=== PATIENT | female | born 1950 | race Caucasian/White ===

== ENCOUNTER 2016-09-26 16:38 | Emergency (ER) | payer MEDICAID ==
--- NOTE | 2016-09-26 16:57 | Emergency Department Record ---
History of Present Illness - General Chief complaint: ENT Stated complaint: EAR PAIN AND SORE THROAT Time Seen by Provider: 09/26/16 16:51 Source: Patient, RN notes reviewed Mode of Arrival: Ambulatory - History of Present Illness Initial comments: left ear pain, for 0ne day , also has congestion and cough for three days MD complaint: Ear pain Onset/Timin -: Days(s) Location: L ear, Throat Severity: Moderate Severity scale (1-10): 10 Quality: Sharp, Stabbing Consistency: Constant Improves with: None Worsens with: Eating, Swallowing, Other Associated Symptoms: Cough, Pain with swallowing, Sore throat, Other - Related Data Previous Rx's Medication Instructions Recorded Amoxicillin [Amoxil] 500 mg PO TID #30 tab 09/26/16 Hydrocodone/Acetaminophen [Widen 1 tab PO Q6H PRN #14 tab 09/26/16 5mg/325mg] Allergies Allergy/AdvReac Type Severity Reaction Status Date / Time IV contrast Allergy Severe ANAPHYLAXIS Uncoded 09/26/16 16:44 Travel Screening - Travel/Exposure Within Last 30 Days Have you traveled within the last 30 days?: No - Travel/Exposure Within Last Year Have you traveled outside the [place] in the last year?: No - Additonal Travel Details Have you been exposed to anyone with a communicable illness?: No - Travel Symptoms Symptom Screening: None Review of Systems Reviewed: No additional complaints except as noted below Constitutional: Reports: As per HPI. Denies: Chills, Fever, Malaise, Night sweats, Weakness, Weight change Eyes: Reports: As per HPI. Denies: Eye discharge, Eye pain, Photophobia, Vision change ENT: Reports: As per HPI, Ear pain, Throat pain. Denies: Congestion, Dental pain, Epistaxis, Hearing loss Respiratory: Reports: As per HPI, Cough. Denies: Dyspnea, Hemoptysis, Stridor, Wheezes Cardiovascular: Reports: As per HPI. Denies: Arrhythmia, Chest pain, Dyspnea on exertion, Edema, Murmurs, Orthopnea, Palpitations, Paroxysmal nocturnal dyspnea, Rheumatic Fever, Syncope Endocrine: Reports: As per HPI. Denies: Fatigue, Heat or cold intolerance, Polydipsia, Polyuria Gastrointestinal: Reports: As per HPI. Denies: Abdominal pain, Constipation, Diarrhea, Hematemesis, Hematochezia, Melena, Nausea, Vomiting Genitourinary: Reports: As per HPI. Denies: Abnormal menses, Discharge, Dyspareunia, Dysuria, Frequency, Hematuria, Incontinence, Retention, Urgency Musculoskeletal: Reports: As per HPI. Denies: Arthralgia, Back pain, Gout, Joint swelling, Myalgia, Neck pain Skin: Reports: As per HPI. Denies: Bruising, Change in color, Change in hair/ nails, Lesions, Pruritus, Rash Neurological: Reports: As per HPI. Denies: Abnormal gait, Confusion, Headache, Numbness, Paresthesias, Seizure, Tingling, Tremors, Vertigo, Weakness Psychiatric: Reports: As per HPI. Denies: Anxiety, Auditory hallucinations, Depression, Homicidal thoughts, Suicidal thoughts, Visual hallucinations Hematological/Lymphatic: Reports: As per HPI. Denies: Anemia, Blood Clots, Easy bleeding, Easy bruising, Swollen glands Past Medical History - SOCIAL HISTORY Smoking Status: Light tobacco smoker (<10/day) Alcohol Use: Rare Drug Use: None - RESPIRATORY Hx Respiratory Disorders: Yes Hx Bronchitis: Yes - CARDIOVASCULAR Hx Cardio Disorders: No - NEURO Hx Neuro Disorders: No - GI Hx GI Disorders: Yes Hx Reflux: Yes - Hx Genitourinary Disorders: No - ENDOCRINE Hx Endocrine Disorders: No Hx Diabetes: No Hx Thyroid Disease: No - MUSCULOSKELETAL Hx Musculoskeletal Disorders: Yes Hx Arthritis: Yes - PSYCH Hx Psych Problems: No - HEMATOLOGY/ONCOLOGY Hx Hematology/Oncology Disorders: No Family Medical History Any Significant Family History?: Yes Hx Diabetes: Mother Hx Heart Disease: Father, Grandparents Physical Exam - General General Appearance: Alert, Oriented x3, Cooperative, No acute distress - Head Head exam: Normal inspection - Eye Eye exam: Normal appearance, PERRL Pupils: Normal accommodation - ENT ENT exam: Mucous membranes moist, Normal external ear exam, Other (left TM is red) Ear exam: Normal external inspection. negative: External canal tenderness Nasal Exam: Normal inspection. negative: Discharge, Sinus tenderness Mouth exam: Normal external inspection, Tongue normal Teeth exam: Normal inspection. negative: Dental caries Throat exam: Normal inspection. negative: Tonsillar erythema, Tonsillar exudate - Neck Neck exam: Normal inspection, Full ROM. negative: Tenderness - Respiratory Respiratory exam: Normal lung sounds bilaterally, Other (couarse cough). negative: Respiratory distress - Cardiovascular Cardiovascular Exam: Regular rate, Normal rhythm, Normal heart sounds - GI/Abdominal GI/Abdominal exam: Soft, Normal bowel sounds. negative: Tenderness - Rectal Rectal exam: Deferred - exam: Deferred - Extremities Extremities exam: Normal inspection, Full ROM, Normal capillary refill. negative: Tenderness - Back Back exam: Reports: Normal inspection, Full ROM. Denies: Muscle spasm, Rash noted, Tenderness - Neurological Neurological exam: Alert, Normal gait, Oriented X3, Reflexes normal - Psychiatric Psychiatric exam: Normal affect, Normal mood - Skin Skin exam: Dry, Intact, Normal color, Warm Course Vital Signs 09/26/16 16:44 Temperature 97.9 F Pulse Rate 89 Respiratory 20 Rate Blood Pressure 184/80 Pulse Ox 99 patient has a nebulizer and albuterol at home and I told her to use it four times a day Disposition Clinical Impression: Bronchitis Otitis media Qualifiers: Otitis media type: suppurative Laterality: left Chronicity: acute Recurrence: not specified as recurrent Spontaneous tympanic membrane rupture: without spontaneous rupture Qualified Code(s): H66.002 - Acute suppurative otitis media without spontaneous rupture of ear drum, left ear Disposition: Home, Self-Care Condition: (1) Good Instructions: Otitis Media (ED), Acute Bronchitis (ED) Prescriptions: Amoxicillin [Amoxil] 500 mg PO TID #30 tab Hydrocodone/Acetaminophen [Widen 5mg/325mg] 1 tab PO Q6H PRN #14 tab PRN Reason: Pain - General Forms: Patient Portal Access Time of Disposition: 17:02
== END 2016-09-26 17:12 | disposition home or self-care (01) ==
LOC: ER 16:38
DX: H66.002 Acute suppurative otitis media without spontaneous rupture of ear drum, left ear (principal); J20.9 Acute bronchitis, unspecified
CPT/HCPCS: 99282

== ENCOUNTER 2016-09-30 14:44 | Emergency (ER) | payer MEDICAID ==
--- NOTE | 2016-09-30 16:57 | Emergency Department Record ---
History of Present Illness - General Chief complaint: ENT Stated complaint: ERICKA/ EAR PAIN Time Seen by Provider: 09/30/16 16:50 Source: Patient Mode of Arrival: Ambulatory Limitations: No limitations - History of Present Illness Initial comments: 66 yo female returns to ED for evaluation of left ear pain and cough symptoms for the past several days. Patient was seen 4 days ago, diagnosed with bronchitis and started on [place] and ampicillin for her symptoms. Patient reports that her symptoms ahve not improved much. Patient denies fevers, chills , nausea, or vomiting symptoms. Patient denies history of COPD or asthma, but reports that she is susceptible to PNA and Bronchitis frequently. MD complaint: Ear pain, Other Onset/Timin -: Week(s) Location: L ear Severity: Moderate Quality: Aching Consistency: Constant Improves with: None Worsens with: None Context- Ear: Recent illness Associated Symptoms: Cough - Related Data Previous Rx's Medication Instructions Recorded Amoxicillin [Amoxil] 500 mg PO TID #30 tab 09/26/16 Hydrocodone/Acetaminophen [[place] 1 tab PO Q6H PRN #14 tab 09/26/16 5mg/325mg] Albuterol Sulfate [Proair Hfa] 1 - 2 puff IH .EVERY 4-6 HOURS PRN 09/30/16 #1 inhaler Amoxicillin/Potassium Clav 1 tab PO BID #19 tab 09/30/16 [Augmentin 875-125 Tablet] Ketorolac Tromethamine [Acular] 3 ml OPTH Q8H PRN #1 btl 09/30/16 Prednisone [Prednisone 20Mg] 20 mg PO TID #12 tab 09/30/16 Allergies Allergy/AdvReac Type Severity Reaction Status Date / Time IV contrast Allergy Severe ANAPHYLAXIS Uncoded 09/26/16 16:44 Review of Systems Constitutional: Denies: Chills, Fever, Malaise, Night sweats Eyes: Denies: Eye discharge, Eye pain ENT: Reports: Ear pain. Denies: Congestion, Epistaxis Respiratory: Reports: Cough. Denies: Dyspnea, Hemoptysis Cardiovascular: Denies: Chest pain, Dyspnea on exertion Endocrine: Denies: Fatigue, Heat or cold intolerance Gastrointestinal: Denies: Abdominal pain, Nausea, Vomiting Genitourinary: Denies: Dysuria, Frequency, Hematuria, Incontinence Musculoskeletal: Denies: Arthralgia, Back pain, Gout, Joint swelling Skin: Denies: Bruising, Change in color Neurological: Denies: Abnormal gait, Confusion, Headache, Tingling Psychiatric: Denies: Anxiety Hematological/Lymphatic: Denies: Anemia, Blood Clots Past Medical History - SOCIAL HISTORY Smoking Status: Light tobacco smoker (<10/day) Drug Use: None - RESPIRATORY Hx Respiratory Disorders: Yes Hx Bronchitis: Yes - CARDIOVASCULAR Hx Cardio Disorders: No - NEURO Hx Neuro Disorders: No - GI Hx GI Disorders: Yes Hx Reflux: Yes - Hx Genitourinary Disorders: No - ENDOCRINE Hx Endocrine Disorders: No Hx Diabetes: No Hx Thyroid Disease: No - MUSCULOSKELETAL Hx Musculoskeletal Disorders: Yes Hx Arthritis: Yes - PSYCH Hx Psych Problems: No - HEMATOLOGY/ONCOLOGY Hx Hematology/Oncology Disorders: No Family Medical History Hx Diabetes: Mother Hx Heart Disease: Father, Grandparents Physical Exam - General General Appearance: Alert, Oriented x3, Cooperative, No acute distress Limitations: No limitations - Head Head exam: Atraumatic, Normocephalic, Normal inspection Head exam detail: negative: Abrasion, Contusion, Mcgee's sign, General tenderness, Hematoma, Laceration - Eye Eye exam: Normal appearance. negative: Conjunctival injection, Periorbital swelling, Periorbital tenderness, Scleral icterus - ENT Ear exam: negative: Auricular hematoma, Auricular trauma Nasal Exam: negative: Active bleeding, Discharge, Dried blood, Foreign body, Sinus tenderness Mouth exam: negative: Drooling, Laceration, Muffled voice, Tongue elevation - Neck Neck exam: Normal inspection. negative: Meningismus, Tenderness - Respiratory Respiratory exam: Decreased breath sounds. negative: Respiratory distress, Rhonchi, Stridor, Wheezes - Cardiovascular Cardiovascular Exam: Regular rate, Normal rhythm, Normal heart sounds - GI/Abdominal GI/Abdominal exam: Soft. negative: Rebound, Rigid, Tenderness - Rectal Rectal exam: Deferred - exam: Deferred - Extremities Extremities exam: Normal inspection. negative: Calf tenderness, Pedal edema, Tenderness - Back Back exam: Reports: Normal inspection. Denies: CVA tenderness (R), CVA tenderness (L) - Neurological Neurological exam: Alert, Normal gait, Oriented X3 - Psychiatric Psychiatric exam: Normal affect, Normal mood - Skin Skin exam: Normal color. negative: Abrasion Type of lesion: negative: abrasion Course - Reevaluation(s) Reevaluation #1: 09/30/16 17:46 CXR: Linear atelectasis or scarring right lateral lung base c/w atelectasis, less likely infiltrate. Patient reassessed, reports improvement in her cough symptoms. Patient was updated on all results and appears stable for discharge at this time on Augmentin, Prednisone, and albuterol for her symptoms. Reevaluation #2: 09/30/16 17:52 Case was discussed with the pharmacist at [facility], reports that Acular may be used for otic pain as well. Will prescribe for the patient's ear pain symptoms. Disposition Disposition: Discharge Clinical Impression: Bronchitis Otitis media Qualifiers: Otitis media type: unspecified Laterality: left Chronicity: unspecified Qualified Code(s): H66.92 - Otitis media, unspecified, left ear Disposition: Home, Self-Care Condition: (2) Stable Instructions: Otitis Media (ED) Additional Instructions: Return to ED if your symptoms worsen or if you have any concerns. Stop amoxicillin Acular, Augmentin, Prednisone, and Albuterol as directed. Follow-up with your family doctor in 3-5 days as directed. Prescriptions: Ketorolac Tromethamine [Acular] 3 ml OPTH Q8H PRN #1 btl PRN Reason: Pain - Moderate (5-7) Amoxicillin/Potassium Clav [Augmentin 875-125 Tablet] 1 tab PO BID #19 tab Prednisone [Prednisone 20Mg] 20 mg PO TID #12 tab Albuterol Sulfate [Proair Hfa] 1 - 2 puff IH .EVERY 4-6 HOURS PRN #1 inhaler PRN Reason: Difficulty In Breathing Forms: Patient Portal Access Time of Disposition: 17:52
[2016-09-30] MEDS: IPRATROPIUM/ALBUTEROL (0.5MG/3MG) NEB INH ONE (16:59)
[2016-09-30] MEDS: PREDNISONE 20 MG TAB PO ONE (17:09)
[2016-09-30] MEDS: AMOXICILLIN/POTASSIUM CLAV 875MG/125MG TABLET PO ONE (17:58)
--- NOTE | 2016-10-04 14:56 | RADIOLOGY REPORT ---
EXAM: CHEST, TWO VIEWS HISTORY: DIFFICULTY IN BREATHING AND CONGESTIN. DIAGNOSED WITH BRONCHITIS FOUR DAYS AGO. TECHNIQUE: Upright PA and lateral views of the chest were obtained. Comparison: Two view chest radiographic examination dated 05/27/15. FINDINGS: The heart is not enlarged and the pulmonary vasculature is nondilated. Patchy predominantly linear opacities are noted within the right lung base consistent with atelectasis, scarring, or less likely infiltrate. A calcified granuloma is again noted in the mid to upper left lung measuring 4 mm , unchanged. The lungs and pleural spaces are otherwise clear. Anterior plate and four screws are again noted affixing the lower cervical spine. There are degenerative changes of the visualized spine. IMPRESSION: 1. MINOR PATCHY PREDOMINANTLY LINEAR OPACITIES WITHIN THE LATERAL RIGHT LUNG BASE CONSISTENT WITH ATELECTASIS, SCARRING, OR LESS LIKELY INFILTRATE. 2. CALCIFIED GRANULOMA REDEMONSTRATED IN THE MID TO UPPER LEFT LUNG. OTHERWISE NO CHANGE. JOB NUMBER: [id number] MTDD
== END 2016-09-30 18:05 | disposition home or self-care (01) ==
LOC: ER 14:44
DX: J20.9 Acute bronchitis, unspecified (principal); H66.92 Otitis media, unspecified, left ear; Z72.0 Tobacco use
CPT/HCPCS: 99283 ×2; 71020; 94640; J7512

== ENCOUNTER 2016-10-11 10:28 | Emergency (ER) | payer MEDICAID ==
--- NOTE | 2016-10-11 10:57 | Emergency Department Record ---
History of Present Illness - General Chief Complaint: Cough Stated Complaint: SHORT OF BREATH/COUGHING/ACHES Time Seen by Provider: 10/11/16 10:42 Source: Patient Mode of Arrival: Ambulatory Limitations: No limitations - History of Present Illness Initial Comments: The patient is here due to a 3-4 week hx of cough, congestion, sputum production , and nasal drainage. She denies any fever, chills, HERRON or ST. She has been to the ER twice in the last 2 weeks and was first placed on Amox then Augmentin and Prednisone with Albuterol. Now she is no better so she has returned. She has been off the Prednisone for 5 days. MD Complaint: Cough, Nasal congestion, Rhinorrhea Onset/Timin -: Week(s) Consistency: Intermittent, Getting worse - Related Data Previous Rx's Medication Instructions Recorded Albuterol Sulfate [Proair Hfa] 1 - 2 puff IH .EVERY 4-6 HOURS PRN 09/30/16 #1 inhaler Doxycycline Monohydrate [Mondoxyne 100 mg PO BID #20 capsule 10/11/16 Nl] Prednisone [Prednisone 20Mg] 40 mg PO DAILY #10 tab 10/11/16 Allergies Allergy/AdvReac Type Severity Reaction Status Date / Time IV contrast Allergy Severe ANAPHYLAXIS Uncoded 10/11/16 10:32 Travel Screening - Travel/Exposure Within Last 30 Days Have you traveled within the last 30 days?: No - Travel/Exposure Within Last Year Have you traveled outside the [place] in the last year?: No - Additonal Travel Details Have you been exposed to anyone with a communicable illness?: No - Travel Symptoms Symptom Screening: None Review of Systems Constitutional: Reports: Malaise. Denies: Chills, Fever Eyes: Denies: Eye discharge, Eye pain ENT: Reports: Congestion Respiratory: Reports: Cough. Denies: Dyspnea Cardiovascular: Denies: Arrhythmia, Chest pain Past Medical History - SOCIAL HISTORY Smoking Status: Light tobacco smoker (<10/day) Alcohol Use: Occassional Drug Use: None - RESPIRATORY Hx Respiratory Disorders: Yes Hx Bronchitis: Yes - CARDIOVASCULAR Hx Cardio Disorders: No - NEURO Hx Neuro Disorders: No - GI Hx GI Disorders: Yes Hx Reflux: Yes - Hx Genitourinary Disorders: No - ENDOCRINE Hx Endocrine Disorders: No Hx Diabetes: No Hx Thyroid Disease: No - MUSCULOSKELETAL Hx Musculoskeletal Disorders: Yes Hx Arthritis: Yes - PSYCH Hx Psych Problems: No - HEMATOLOGY/ONCOLOGY Hx Hematology/Oncology Disorders: No Family Medical History Any Significant Family History?: Yes Hx Diabetes: Mother Hx Heart Disease: Father, Grandparents Physical Exam - General General Appearance: Alert, Oriented x3, Cooperative, No acute distress - Head Head exam: Atraumatic, Normocephalic, Normal inspection - Eye Eye exam: Normal appearance, PERRL - ENT ENT exam: Normal exam, Mucous membranes moist, Normal external ear exam, Normal orophraynx, TM's normal bilaterally Throat exam: Tonsillar erythema. negative: Normal inspection, Tonsillomegaly, Tonsillar exudate - Neck Neck exam: Normal inspection, Full ROM. negative: Lymphadenopathy, Meningismus , Tenderness - Respiratory Respiratory exam: Normal lung sounds bilaterally. negative: Accessory muscle use, Decreased breath sounds, Respiratory distress, Stridor, Wheezes - Cardiovascular Cardiovascular Exam: Regular rate, Normal rhythm, Normal heart sounds - Extremities Extremities exam: Normal inspection, Full ROM, Normal capillary refill. negative: Tenderness Course Vital Signs 10/11/16 10:35 Temperature 98.5 F Pulse Rate 94 H Respiratory 20 Rate Blood Pressure 124/95 Pulse Ox 99 - Reevaluation(s) Reevaluation #1: Due to the patient having clear lungs and a normal temp and biox I do not feel she needs another xray. We will prescribe her Doxycycline and another short course of Prednisone with F/U next week with her PCP. 10/11/16 10:54 Disposition Disposition: Discharge Clinical Impression: Bronchitis Disposition: Home, Self-Care Condition: (1) Good Instructions: Cold Symptoms (ED) Additional Instructions: Please take the Doxycyline and Prednisone as directed. Please see your PCP next week if not better and return to the ER if worse. Prescriptions: Doxycycline Monohydrate [Mondoxyne Nl] 100 mg PO BID #20 capsule Prednisone [Prednisone 20Mg] 40 mg PO DAILY #10 tab Forms: Patient Portal Access Time of Disposition: 10:57
== END 2016-10-11 11:01 | disposition home or self-care (01) ==
LOC: ER 10:28
DX: J20.9 Acute bronchitis, unspecified (principal)
CPT/HCPCS: 99282

== ENCOUNTER 2016-10-22 04:13 | Emergency (ER) | payer MEDICAID ==
--- NOTE | 2016-10-22 04:23 | Emergency Department Record ---
History of Present Illness - General Chief complaint: Facial Swelling Stated complaint: FACIAL SWELLING Time Seen by Provider: 10/22/16 04:22 Source: Patient Mode of Arrival: Ambulatory Limitations: No limitations - History of Present Illness Initial Comments: The patient is here due to a 2 day hx of L facial swelling and pain. The onset was 2 days ago with mild pain above her L # 11 tooth. The pain and swelling worsened today. She denies any ST, ERICKA, difficulty swallowing or fever. MD Complaint: Facial swelling Onset/Timin -: Days(s) Exposure: Unknown Symptoms: Facial swelling - Related Data Previous Rx's Medication Instructions Recorded Albuterol Sulfate [Proair Hfa] 1 - 2 puff IH .EVERY 4-6 HOURS PRN 09/30/16 #1 inhaler Clindamycin HCl [Cleocin HCl] 300 mg PO QID #28 capsule 10/22/16 Allergies Allergy/AdvReac Type Severity Reaction Status Date / Time IV contrast Allergy Severe ANAPHYLAXIS Uncoded 10/11/16 10:32 Travel Screening - Travel/Exposure Within Last 30 Days Have you traveled within the last 30 days?: No - Travel Symptoms Symptom Screening: None Review of Systems Constitutional: Denies: Chills, Fever Eyes: Denies: Eye discharge ENT: Denies: Congestion Respiratory: Denies: Cough, Dyspnea Past Medical History - SOCIAL HISTORY Smoking Status: Light tobacco smoker (<10/day) - RESPIRATORY Hx Respiratory Disorders: Yes Hx Bronchitis: Yes - CARDIOVASCULAR Hx Cardio Disorders: No - NEURO Hx Neuro Disorders: No - GI Hx GI Disorders: Yes Hx Reflux: Yes - Hx Genitourinary Disorders: No - ENDOCRINE Hx Endocrine Disorders: No Hx Diabetes: No Hx Thyroid Disease: No - MUSCULOSKELETAL Hx Musculoskeletal Disorders: Yes Hx Arthritis: Yes - PSYCH Hx Psych Problems: No - HEMATOLOGY/ONCOLOGY Hx Hematology/Oncology Disorders: No Family Medical History Any Significant Family History?: Yes Hx Diabetes: Mother Hx Heart Disease: Father, Grandparents Physical Exam - General General Appearance: Alert, Oriented x3, Cooperative, No acute distress - Head Head exam: Atraumatic, Normocephalic, Normal inspection - Eye Eye exam: Normal appearance, PERRL - ENT ENT exam: Other (There is moderate L facial swelling and tenderness.). negative : Normal exam Teeth exam: Dental caries, Dental tenderness # (11. The gum line above the # 11 tooth is very tender.). negative: Normal inspection Throat exam: Normal inspection. negative: Tonsillar erythema, Tonsillar exudate - Neck Neck exam: Normal inspection, Full ROM. negative: Tenderness - Respiratory Respiratory exam: Normal lung sounds bilaterally. negative: Respiratory distress - Cardiovascular Cardiovascular Exam: Regular rate, Normal rhythm, Normal heart sounds Course Vital Signs 10/22/16 04:17 Temperature 98.5 F Pulse Rate 115 H Respiratory 18 Rate Blood Pressure 120/90 Pulse Ox 98 - Reevaluation(s) Reevaluation #1: I did discuss the options for the patient. I explained to her that we normally will keep the patient in the hospital for IV Abx. The patient states she cannot stay due to needing to go to [facility] this AM because her is having a cardiac procedure. I then discussed the need to return to the ER later today for repeat Abx's and she did say she could do that. 10/22/16 04:34 10/22/16 05:08 Disposition Disposition: Discharge Clinical Impression: Dental Abscess Disposition: Home, Self-Care Condition: (1) Good Instructions: Dental Abscess (ED) Additional Instructions: Please use ice on the L facial area and take Tylenol for pain. Please return to the ER in 8 hours for repeat IV Abx's. Return to the ER sooner for any increased pain, fever, or trouble swallowing. Prescriptions: Clindamycin HCl [Cleocin HCl] 300 mg PO QID #28 capsule Forms: Patient Portal Access Time of Disposition: 05:10
[2016-10-22] MEDS ORDERED: CLINDAMYCIN 600MG/50ML PREMIX 600 MG in DEXTROSE 1 BAG IV ONE (04:28)
== END 2016-10-22 05:25 | disposition home or self-care (01) ==
LOC: ER 04:13
DX: K04.7 Periapical abscess without sinus (principal)
CPT/HCPCS: 96365; 96374; 99282; 99283; 99284

== ENCOUNTER 2016-10-22 12:28 | Emergency (ER) | payer MEDICAID ==
[2016-10-22] MEDS ORDERED: CLINDAMYCIN 600MG/50ML PREMIX 600 MG in DEXTROSE 1 BAG IV ONE (12:47)
--- NOTE | 2016-10-22 12:54 | Emergency Department Record ---
History of Present Illness - General Chief complaint: Abscess Stated complaint: RECHECK FACIAL SWELLING Time Seen by Provider: 10/22/16 12:38 Source: Patient, Family Mode of Arrival: Ambulatory Limitations: No limitations - History of Present Illness Initial comments: 66 yo female presents with 2 days of left upper gum pain with swelling. She was seen in the ED earlier in the morning. She was asked to return for additionally antibiotics. She has not started the prescription of Clindamycin that was prescribed. She denies and throat or neck pain. No difficulty swallowing. She has not called a dentist for this issue yet. She has not seen a dentist in "many" years. She reports the site is stable and not worse since initial visit. Her is critically ill and she has been very busy dealing with that as well. MD complaint: Other (Dental infection) -: Days(s) Hx Tetanus Toxoid Vaccination: Yes Year of Tetanus Vaccination: unsure Location: Face Severity: Moderate Severity scale (1-10): 7 Quality: Aching Consistency: Constant Improves with: None Worsens with: None Context: None Associated symptoms: Denies other symptoms Treatments Prior to Arrival: None - Related Data Previous Rx's Medication Instructions Recorded Albuterol Sulfate [Proair Hfa] 1 - 2 puff IH .EVERY 4-6 HOURS PRN 09/30/16 #1 inhaler Clindamycin HCl [Cleocin HCl] 300 mg PO QID #28 capsule 10/22/16 Allergies Allergy/AdvReac Type Severity Reaction Status Date / Time IV contrast Allergy Severe ANAPHYLAXIS Uncoded 10/22/16 12:39 Travel Screening - Travel/Exposure Within Last 30 Days Have you traveled within the last 30 days?: No - Travel/Exposure Within Last Year Have you traveled outside the [place] in the last year?: No - Additonal Travel Details Have you been exposed to anyone with a communicable illness?: No - Travel Symptoms Symptom Screening: None Review of Systems Constitutional: Denies: Chills, Fever, Malaise, Night sweats Eyes: Denies: Eye discharge, Eye pain, Photophobia, Vision change ENT: Reports: As per HPI, Dental pain. Denies: Throat pain Respiratory: Denies: Cough, Dyspnea Cardiovascular: Denies: Chest pain, Palpitations, Syncope Endocrine: Denies: Fatigue Gastrointestinal: Denies: Abdominal pain, Diarrhea, Nausea, Vomiting Genitourinary: Denies: Dysuria Musculoskeletal: Denies: Arthralgia, Back pain, Myalgia Skin: Denies: Bruising, Change in color, Rash Neurological: Denies: Headache Psychiatric: Denies: Anxiety Hematological/Lymphatic: Denies: Blood Clots, Easy bleeding, Easy bruising, Swollen glands Past Medical History - SOCIAL HISTORY Smoking Status: Light tobacco smoker (<10/day) - RESPIRATORY Hx Respiratory Disorders: Yes Hx Bronchitis: Yes - CARDIOVASCULAR Hx Cardio Disorders: No - NEURO Hx Neuro Disorders: No - GI Hx GI Disorders: Yes Hx Reflux: Yes - Hx Genitourinary Disorders: No - ENDOCRINE Hx Endocrine Disorders: No Hx Diabetes: No Hx Thyroid Disease: No - MUSCULOSKELETAL Hx Musculoskeletal Disorders: Yes Hx Arthritis: Yes - PSYCH Hx Psych Problems: No - HEMATOLOGY/ONCOLOGY Hx Hematology/Oncology Disorders: No Family Medical History Any Significant Family History?: Yes Hx Diabetes: Mother Hx Heart Disease: Father, Grandparents Physical Exam - General General Appearance: Alert, Oriented x3, Cooperative, No acute distress Limitations: No limitations - Head Head exam: Atraumatic, Normocephalic Image of Face/Head: 1 - local swelling and mild erythema with focal tenderness. Intra oral exam: no visible bulge or visible abscess. 2 - area of tenderness - Eye Eye exam: Normal appearance, Periorbital swelling (slight lower lid swelling) - ENT ENT exam: Mucous membranes moist, Normal orophraynx Nasal Exam: Normal inspection Mouth exam: Normal external inspection, Tongue normal. negative: Drooling, Muffled voice, Tongue elevation, Trismus Teeth exam: Dental tenderness # (11). negative: Dental caries, Fractured tooth #, Gingival enlargement Throat exam: Normal inspection. negative: Tonsillar erythema, Tonsillar exudate - Neck Neck exam: Normal inspection, Full ROM. negative: Lymphadenopathy, Tenderness, Thyromegaly - Respiratory Respiratory exam: Normal lung sounds bilaterally. negative: Respiratory distress - Cardiovascular Cardiovascular Exam: Regular rate, Normal rhythm, Normal heart sounds - Rectal Rectal exam: Deferred - exam: Deferred - Neurological Neurological exam: Alert, CN II-XII intact, Oriented X3. negative: Motor sensory deficit - Psychiatric Psychiatric exam: Normal affect, Normal mood - Skin Skin exam: Erythema Course Vital Signs 10/22/16 12:31 Temperature 98.2 F Pulse Rate 90 Respiratory 20 Rate Blood Pressure 135/72 Pulse Ox 97 - Reevaluation(s) Reevaluation #1: The EMR was reviewed The patient received Clindamycin on the prior visit (she has not started her oral prescription yet). IV clindamycin ordered. 10/22/16 12:54 Reevaluation #2: The patient requests again DC with return for IV antibiotics if needed. She did fill her Clindamycin and can start that when the IV is finished. 10/22/16 13:05 Disposition Disposition: Discharge Clinical Impression: Abscess, dental Disposition: Home, Self-Care Condition: (1) Good Instructions: Abscess (ED) Additional Instructions: Return at 8:30pm for an additional dose of antibiotics Call the numbers provided to you for a dentist Return sooner if worse immediately Forms: Patient Portal Access Time of Disposition: 13:07
== END 2016-10-22 13:36 | disposition home or self-care (01) ==
LOC: ER 12:28
DX: K04.7 Periapical abscess without sinus (principal)

== ENCOUNTER 2016-10-22 19:44 | Emergency (ER) | payer MEDICAID ==
[2016-10-22] MEDS ORDERED: CLINDAMYCIN 600MG/50ML PREMIX 600 MG in DEXTROSE 1 BAG IV ONE (19:54)
--- NOTE | 2016-10-22 20:00 | Emergency Department Record ---
History of Present Illness - General Chief Complaint: Recheck - Other Stated Complaint: RECHECK FACIAL SWELLING Time Seen by Provider: 10/22/16 19:54 Source: Patient Mode of arrival: Ambulatory Limitations: No limitations - History of Present Illness Initial Comments: 66 yo female presents to ED for re-evaluation of left sided facial swelling and pain that began early this morning. Patient reports pain and redness to the area, but reports that the swelling around the eye has improved since this morning. Patient denies fevers, chills, or recent illness symptoms. MD Complaint: Needs IV antibiotics Onset/Timin -: Days(s) Initial Visit For: Abscess Returns Today for: Needs IV antibiotics Symptoms Since Prior Visit: No new symptoms, Improved Associated Symptoms: None - Related Data Previous Rx's Medication Instructions Recorded Albuterol Sulfate [Proair Hfa] 1 - 2 puff IH .EVERY 4-6 HOURS PRN 09/30/16 #1 inhaler Clindamycin HCl [Cleocin HCl] 300 mg PO QID #28 capsule 10/22/16 Allergies Allergy/AdvReac Type Severity Reaction Status Date / Time IV contrast Allergy Severe ANAPHYLAXIS Uncoded 10/22/16 12:39 Travel Screening - Travel/Exposure Within Last 30 Days Have you traveled within the last 30 days?: No Review of Systems Constitutional: Denies: Chills, Fever, Malaise, Night sweats Eyes: Denies: Eye discharge, Eye pain ENT: Denies: Congestion, Ear pain, Epistaxis Respiratory: Denies: Cough, Dyspnea Cardiovascular: Denies: Chest pain, Dyspnea on exertion Endocrine: Denies: Fatigue, Heat or cold intolerance Gastrointestinal: Denies: Abdominal pain, Nausea, Vomiting Genitourinary: Denies: Dysuria, Frequency Musculoskeletal: Denies: Arthralgia, Back pain, Gout, Joint swelling Skin: Reports: Change in color, Rash (erythema to the left face). Denies: Bruising Neurological: Denies: Abnormal gait, Confusion, Headache, Seizure Psychiatric: Denies: Anxiety Hematological/Lymphatic: Denies: Anemia, Blood Clots Past Medical History - SOCIAL HISTORY Smoking Status: Light tobacco smoker (<10/day) Alcohol Use: None Drug Use: None - RESPIRATORY Hx Respiratory Disorders: Yes Hx Bronchitis: Yes - CARDIOVASCULAR Hx Cardio Disorders: No - NEURO Hx Neuro Disorders: No - GI Hx GI Disorders: Yes Hx Reflux: Yes - Hx Genitourinary Disorders: No - ENDOCRINE Hx Endocrine Disorders: No Hx Diabetes: No Hx Thyroid Disease: No - MUSCULOSKELETAL Hx Musculoskeletal Disorders: Yes Hx Arthritis: Yes - PSYCH Hx Psych Problems: No - HEMATOLOGY/ONCOLOGY Hx Hematology/Oncology Disorders: No Family Medical History Any Significant Family History?: Yes Hx Diabetes: Mother Hx Heart Disease: Father, Grandparents Physical Exam - General General Appearance: Alert, Oriented x3, Cooperative, No acute distress Limitations: No limitations - Head Head exam: Atraumatic, Other (Left sided facial swelling and koko-orbital edema) Head exam detail: General tenderness. negative: Abrasion, Contusion, Mcgee's sign, Hematoma, Laceration - Eye Eye exam: Periorbital swelling, Periorbital tenderness. negative: Conjunctival injection, Scleral icterus - ENT Ear exam: negative: Auricular hematoma, Auricular trauma Nasal Exam: negative: Active bleeding, Discharge, Dried blood, Foreign body Mouth exam: negative: Drooling, Laceration, Muffled voice, Tongue elevation Teeth exam: Other (all teeth have been removed to the upper left) - Neck Neck exam: negative: Lymphadenopathy, Meningismus, Tenderness - Respiratory Respiratory exam: Normal lung sounds bilaterally. negative: Rales, Respiratory distress, Rhonchi, Stridor - Cardiovascular Cardiovascular Exam: Regular rate, Normal rhythm, Normal heart sounds - GI/Abdominal GI/Abdominal exam: Soft. negative: Rebound, Rigid, Tenderness - Rectal Rectal exam: Deferred - exam: Deferred - Extremities Extremities exam: Normal inspection. negative: Pedal edema, Tenderness - Back Back exam: Denies: CVA tenderness (R), CVA tenderness (L) - Neurological Neurological exam: Alert, Normal gait, Oriented X3 - Psychiatric Psychiatric exam: Normal affect, Normal mood - Skin Skin exam: Erythema, Warm Distribution of rash: Face Description of rash: Confluent, Swelling, Tenderness. negative: Fluctuant, Indurated Course Vital Signs 10/22/16 19:50 Temperature 98.3 F Pulse Rate [ 92 H Pulse Ox Probe] Respiratory 20 Rate Blood Pressure 154/79 [Left Arm] Pulse Ox 99 - Reevaluation(s) Reevaluation #1: 10/22/16 20:31 IV Clindamcyin has completed infusion, patient reports overall improvement from this morning. Patient appears stable for discharge with instructions to begin her oral Clindamycin and to return for any worsening of her symptoms. Patient agrees with plan as discussed. Disposition Disposition: Discharge Clinical Impression: Abscess, dental Instructions: Periorbital Cellulitis in Children (ED) Additional Instructions: Return to ED if your symptoms worsen or if you have any concerns. Continue oral clindamcyin as directed. Follow-up with your family doctor in 1-3 days as directed. Forms: Patient Portal Access Time of Disposition: 20:00
== END 2016-10-22 20:35 | disposition home or self-care (01) ==
LOC: ER 19:44
DX: K04.7 Periapical abscess without sinus (principal)

== ENCOUNTER 2016-11-26 07:42 | Emergency (ER) | payer MEDICAID ==
--- NOTE | 2016-11-26 07:59 | Emergency Department Record ---
History of Present Illness - General Chief Complaint: Cough Stated Complaint: COUGH Time Seen by Provider: 11/26/16 07:43 Source: Patient Mode of Arrival: Ambulatory Limitations: No limitations - History of Present Illness Initial Comments: 66 yo female presents to ED with a CC of cough symptoms for the past 2-3 days. Patient denies fevers, chills, or recent illness. Patient reports a history of COPD and bronchitis with similar symptoms. MD Complaint: Cough Onset/Timin -: Days(s) Severity: Moderate Severity scale (1-10): 7 Consistency: Constant Improves With: Nothing Worsens With: Deep breaths Associated Symptoms: Denies other symptoms Treatments Prior to Arrival: Other - Related Data Previous Rx's Medication Instructions Recorded Albuterol Sulfate [Proair Hfa] 1 - 2 puff IH .EVERY 4-6 HOURS PRN 09/30/16 #1 inhaler Prednisone [Prednisone 20Mg] 20 mg PO TID #15 tab 11/26/16 Promethazine HCl/Codeine 5 - 10 ml PO .AT BEDTIME PRN #118 11/26/16 [Phenergan W/Codeine] ml Allergies Allergy/AdvReac Type Severity Reaction Status Date / Time IV contrast Allergy Severe ANAPHYLAXIS Uncoded 10/22/16 12:39 Travel Screening - Travel/Exposure Within Last 30 Days Have you traveled within the last 30 days?: No Review of Systems Constitutional: Denies: Chills, Fever, Malaise, Night sweats Eyes: Denies: Eye discharge, Eye pain ENT: Reports: Congestion. Denies: Ear pain, Epistaxis Respiratory: Reports: Cough, Wheezes. Denies: Dyspnea Cardiovascular: Denies: Chest pain, Edema Endocrine: Denies: Fatigue, Heat or cold intolerance Gastrointestinal: Denies: Abdominal pain, Nausea, Vomiting Genitourinary: Denies: Frequency, Hematuria, Incontinence Musculoskeletal: Denies: Arthralgia, Back pain, Gout, Joint swelling Skin: Denies: Bruising, Change in color Neurological: Denies: Abnormal gait, Confusion, Headache, Tingling Psychiatric: Denies: Anxiety Hematological/Lymphatic: Denies: Anemia, Blood Clots Past Medical History - SOCIAL HISTORY Smoking Status: Light tobacco smoker (<10/day) Alcohol Use: None Drug Use: None - RESPIRATORY Hx Respiratory Disorders: Yes Hx Bronchitis: Yes - CARDIOVASCULAR Hx Cardio Disorders: No - NEURO Hx Neuro Disorders: No - GI Hx GI Disorders: Yes Hx Reflux: Yes - Hx Genitourinary Disorders: No - ENDOCRINE Hx Endocrine Disorders: No Hx Diabetes: No Hx Thyroid Disease: No - MUSCULOSKELETAL Hx Musculoskeletal Disorders: Yes Hx Arthritis: Yes - PSYCH Hx Psych Problems: No - HEMATOLOGY/ONCOLOGY Hx Hematology/Oncology Disorders: No Family Medical History Any Significant Family History?: Yes Hx Diabetes: Mother Hx Heart Disease: Father, Grandparents Physical Exam - General General Appearance: Alert, Oriented x3, Cooperative, Mild distress Limitations: No limitations - Head Head exam: Atraumatic, Normocephalic, Normal inspection Head exam detail: negative: Abrasion, Contusion, Mcgee's sign, General tenderness, Hematoma, Laceration - Eye Eye exam: Normal appearance. negative: Conjunctival injection, Periorbital swelling, Periorbital tenderness, Scleral icterus - ENT Ear exam: negative: Auricular hematoma, Auricular trauma Nasal Exam: Normal inspection. negative: Active bleeding, Discharge, Dried blood Mouth exam: Tongue elevation. negative: Drooling, Laceration, Muffled voice - Neck Neck exam: Normal inspection. negative: Meningismus, Tenderness - Respiratory Respiratory exam: Other (corase BS bilaterally, no wheezes currently). negative : Respiratory distress, Rhonchi, Stridor, Wheezes - Cardiovascular Cardiovascular Exam: Regular rate, Normal rhythm, Normal heart sounds - GI/Abdominal GI/Abdominal exam: Soft. negative: Organomegaly, Rebound, Rigid, Tenderness - Rectal Rectal exam: Deferred - exam: Deferred - Extremities Extremities exam: negative: Pedal edema, Tenderness - Back Back exam: Denies: CVA tenderness (R), CVA tenderness (L) - Neurological Neurological exam: Alert, Oriented X3 - Psychiatric Psychiatric exam: Normal affect, Normal mood - Skin Skin exam: Normal color. negative: Abrasion Type of lesion: negative: abrasion Course Vital Signs 11/26/16 07:44 Temperature 97.7 F Pulse Rate 86 Respiratory 20 Rate Blood Pressure 135/72 Pulse Ox 99 - Reevaluation(s) Reevaluation #1: 11/26/16 08:04 Patient denies any symptoms c/w bacterial infection (fevers, chills, productive cough), will treat with prednisone for her lung inflammation as well as phenergan with codeine for her cough symptoms. Patient appears stable for discharge at this time. Disposition Disposition: Discharge Clinical Impression: Bronchitis Disposition: Home, Self-Care Condition: (2) Stable Instructions: Acute Bronchitis (ED) Additional Instructions: Return to ED if your symptoms worsen or if you have any concerns. Prednisone and phenergan with codeine as directed. Follow-up with your family doctor in 3-5 days as directed. Prescriptions: Promethazine HCl/Codeine [Phenergan W/Codeine] 5 - 10 ml PO .AT BEDTIME PRN # 118 ml PRN Reason: Cough Prednisone [Prednisone 20Mg] 20 mg PO TID #15 tab Forms: Patient Portal Access Time of Disposition: 07:58
== END 2016-11-26 08:03 | disposition home or self-care (01) ==
LOC: ER 07:42
DX: J20.9 Acute bronchitis, unspecified (principal)
CPT/HCPCS: 99282

== ENCOUNTER 2017-04-20 17:49 | Emergency (ER) | payer MEDICAID ==
[2017-04-20 18:04] LABS: URINE APPEARANCE CLOUDY; URINE BILIRUBIN NEGATIVE (NEGATIVE); URINE BLOOD SMALL (NEGATIVE); URINE COLOR ORANGE; URINE KETONE NEGATIVE (NEGATIVE); URINE LEUKOCYTE ESTERASE MODERATE (NEGATIVE); URINE NITRITE POSITIVE (NEGATIVE)
[2017-04-20 18:10] LABS: URINE BACTERIA 1+; URINE EPITHELIAL CELLS 0 - 2 (FEW); URINE WBC 16 - 20 (0-2/hpf)
[2017-04-20] MEDS ORDERED: ONDANSETRON 4 MG ODT TABLET SL ONE ×2 (18:13→18:24)
--- NOTE | 2017-04-20 18:13 | Emergency Department Record ---
History of Present Illness - General Chief complaint: Female Urogenital Problem Stated complaint: UTI Time Seen by Provider: 04/20/17 18:07 Source: Patient Mode of Arrival: Ambulatory - History of Present Illness Initial comments: The patient started having dysuria this morning llike her typical UTI symptoms. She took azo over the counter which hasn't helped, plus it made her nauseated. She denies vomiting, fever, chills, flank pain, or abdominal pain. She has never had kidney stones. She states that bactrim usually is what works for her UTI's. MD Complaint: Dysuria Onset/Timin -: Hour(s) Quality: Burning Associated Symptoms: Nausea/vomiting - Related Data Previous Rx's Medication Instructions Recorded Albuterol Sulfate [Proair Hfa] 1 - 2 puff IH .EVERY 4-6 HOURS PRN 09/30/16 #1 inhaler Phenazopyridine HCl [Pyridium] 200 mg PO TID #6 tab 04/20/17 Sulfamethoxazole/Trimethoprim 1 each PO BID #19 tablet 04/20/17 [Bactrim Ds Tablet] Allergies Allergy/AdvReac Type Severity Reaction Status Date / Time IV contrast Allergy Severe ANAPHYLAXIS Uncoded 10/22/16 12:39 Travel Screening - Travel/Exposure Within Last 30 Days Have you traveled within the last 30 days?: No - Travel/Exposure Within Last Year Have you traveled outside the [place] in the last year?: No - Additonal Travel Details Have you been exposed to anyone with a communicable illness?: No - Travel Symptoms Symptom Screening: None Review of Systems Reviewed: No additional complaints except as noted below Constitutional: Reports: As per HPI. Denies: Chills, Fever, Malaise, Night sweats, Weakness, Weight change Eyes: Reports: As per HPI. Denies: Eye discharge, Eye pain, Photophobia, Vision change ENT: Reports: As per HPI. Denies: Congestion, Dental pain, Ear pain, Epistaxis , Hearing loss, Throat pain Respiratory: Reports: As per HPI. Denies: Cough, Dyspnea, Hemoptysis, Stridor, Wheezes Cardiovascular: Reports: As per HPI. Denies: Arrhythmia, Chest pain, Dyspnea on exertion, Edema, Murmurs, Orthopnea, Palpitations, Paroxysmal nocturnal dyspnea, Rheumatic Fever, Syncope Endocrine: Reports: As per HPI. Denies: Fatigue, Heat or cold intolerance, Polydipsia, Polyuria Gastrointestinal: Reports: As per HPI. Denies: Abdominal pain, Constipation, Diarrhea, Hematemesis, Hematochezia, Melena, Nausea, Vomiting Genitourinary: Reports: As per HPI. Denies: Abnormal menses, Discharge, Dyspareunia, Dysuria, Frequency, Hematuria, Incontinence, Retention, Urgency Musculoskeletal: Reports: As per HPI. Denies: Arthralgia, Back pain, Gout, Joint swelling, Myalgia, Neck pain Skin: Reports: As per HPI. Denies: Bruising, Change in color, Change in hair/ nails, Lesions, Pruritus, Rash Neurological: Reports: As per HPI. Denies: Abnormal gait, Confusion, Headache, Numbness, Paresthesias, Seizure, Tingling, Tremors, Vertigo, Weakness Psychiatric: Reports: As per HPI. Denies: Anxiety, Auditory hallucinations, Depression, Homicidal thoughts, Suicidal thoughts, Visual hallucinations Hematological/Lymphatic: Reports: As per HPI. Denies: Anemia, Blood Clots, Easy bleeding, Easy bruising, Swollen glands Past Medical History - SOCIAL HISTORY Smoking Status: Light tobacco smoker (<10/day) Alcohol Use: Rare Drug Use: None - RESPIRATORY Hx Respiratory Disorders: Yes Hx Bronchitis: Yes - CARDIOVASCULAR Hx Cardio Disorders: No - NEURO Hx Neuro Disorders: No - GI Hx GI Disorders: Yes Hx Reflux: Yes - Hx Genitourinary Disorders: Yes Hx UTI: Yes - ENDOCRINE Hx Endocrine Disorders: No Hx Diabetes: No Hx Thyroid Disease: No - MUSCULOSKELETAL Hx Musculoskeletal Disorders: Yes Hx Arthritis: Yes - PSYCH Hx Psych Problems: No - HEMATOLOGY/ONCOLOGY Hx Hematology/Oncology Disorders: No Family Medical History Any Significant Family History?: No Hx Diabetes: Mother Hx Heart Disease: Father, Grandparents Physical Exam - General General Appearance: Alert, Oriented x3, Cooperative, No acute distress - Head Head exam: Normal inspection - Eye Eye exam: Normal appearance, PERRL Pupils: Normal accommodation - ENT ENT exam: Normal exam, Mucous membranes moist, Normal external ear exam, Normal orophraynx, TM's normal bilaterally Ear exam: Normal external inspection. negative: External canal tenderness Nasal Exam: Normal inspection. negative: Discharge, Sinus tenderness Mouth exam: Normal external inspection, Tongue normal Teeth exam: Normal inspection. negative: Dental caries Throat exam: Normal inspection. negative: Tonsillar erythema, Tonsillar exudate - Neck Neck exam: Normal inspection, Full ROM. negative: Tenderness - Respiratory Respiratory exam: Normal lung sounds bilaterally. negative: Respiratory distress - Cardiovascular Cardiovascular Exam: Regular rate, Normal rhythm, Normal heart sounds - GI/Abdominal GI/Abdominal exam: Soft, Normal bowel sounds. negative: Tenderness - Rectal Rectal exam: Deferred - exam: Deferred - Extremities Extremities exam: Normal inspection, Full ROM, Normal capillary refill. negative: Calf tenderness, Pedal edema, Tenderness - Back Back exam: Reports: Normal inspection, Full ROM. Denies: CVA tenderness (R), CVA tenderness (L), Muscle spasm, Rash noted, Tenderness - Neurological Neurological exam: Alert, Normal gait, Oriented X3, Reflexes normal - Psychiatric Psychiatric exam: Normal affect, Normal mood - Skin Skin exam: Dry, Intact, Normal color, Warm Course Vital Signs 04/20/17 17:52 Temperature 98.1 F Pulse Rate 80 Respiratory 18 Rate Blood Pressure 154/80 Pulse Ox 98 Medical Decision Making - Management Options MDM Management: No Additional Work-up Planned - Data Complexity MDM Data: Labs Ordered and/or Reviewed (UA:+1 bacteria, 16-20 WBC, mod LE, + nitrites) - Lab Data Lab Results 04/20/17 Range/Units 17:52 Urine Color [place] H Urine Appearance Cloudy Urine pH 6.0 (5.0-8.0) Ur Specific [place] 1.020 (1.002-1.030) Urine Protein 30 mg/dl H (NEGATIVE) Urine Glucose (UA) 100 mg/dl H (NEGATIVE) Urine Ketones Negative (NEGATIVE) Urine Blood Small H (NEGATIVE) Urine Nitrite Positive H (NEGATIVE) Urine Bilirubin Negative (NEGATIVE) Urine Urobilinogen 4.0 H (0.20 - 1.00) E.U./dL Ur Leukocyte Esterase Moderate H (NEGATIVE) Disposition Disposition: Discharge Clinical Impression: UTI (urinary tract infection), uncomplicated Disposition: Home, Self-Care Condition: (1) Good Instructions: Urinary Tract Infection in Women (ED) Additional Instructions: Take antibiotics until gone. Take pyridium as directed for 2 days for dysuria. This will turn your urine orange. Follow up with PCP as needed. Zofran every 8 hours if needed for nausea. Prescriptions: Phenazopyridine HCl [Pyridium] 200 mg PO TID #6 tab Sulfamethoxazole/Trimethoprim [Bactrim Ds Tablet] 1 each PO BID #19 tablet Forms: Patient Portal Access Quality - Quality Measures Quality Measures: N/A - Blood Pressure Screening Does Patient Have Any of the Following: No Blood Pressure Classification: Pre-Hypertensive BP Reading Systolic Measurement: 154 Diastolic Measurement: 80 Screening for High Blood Pressure: < Pre-Hypertensive BP, F/U Documented > [ [id number]] Pre-Hypertensive Follow-up Interventions: Follow-up with rescreen every year.
[2017-04-20] MEDS ORDERED: TMP/SMZ 160MG/800MG TAB PO ONE (18:25)
--- NOTE | 2017-04-20 18:37 | Emergency Department Record ---
History of Present Illness - General Chief complaint: Female Urogenital Problem Stated complaint: UTI Time Seen by Provider: 04/20/17 18:07 Source: Patient Mode of Arrival: Ambulatory - History of Present Illness Onset/Timin -: Hour(s) Quality: Burning Associated Symptoms: Nausea/vomiting - Related Data Previous Rx's Medication Instructions Recorded Albuterol Sulfate [Proair Hfa] 1 - 2 puff IH .EVERY 4-6 HOURS PRN 09/30/16 #1 inhaler Phenazopyridine HCl [Pyridium] 200 mg PO TID #6 tab 04/20/17 Sulfamethoxazole/Trimethoprim 1 each PO BID #19 tablet 04/20/17 [Bactrim Ds Tablet] Allergies Allergy/AdvReac Type Severity Reaction Status Date / Time IV contrast Allergy Severe ANAPHYLAXIS Uncoded 10/22/16 12:39 Travel Screening - Travel/Exposure Within Last 30 Days Have you traveled within the last 30 days?: No - Travel/Exposure Within Last Year Have you traveled outside the [place] in the last year?: No - Additonal Travel Details Have you been exposed to anyone with a communicable illness?: No - Travel Symptoms Symptom Screening: None Review of Systems Constitutional: Reports: As per HPI. Denies: Chills, Fever, Malaise, Night sweats, Weakness, Weight change Eyes: Reports: As per HPI. Denies: Eye discharge, Eye pain, Photophobia, Vision change ENT: Reports: As per HPI. Denies: Congestion, Dental pain, Ear pain, Epistaxis , Hearing loss, Throat pain Respiratory: Reports: As per HPI. Denies: Cough, Dyspnea, Hemoptysis, Stridor, Wheezes Cardiovascular: Reports: As per HPI. Denies: Arrhythmia, Chest pain, Dyspnea on exertion, Edema, Murmurs, Orthopnea, Palpitations, Paroxysmal nocturnal dyspnea, Rheumatic Fever, Syncope Endocrine: Reports: As per HPI. Denies: Fatigue, Heat or cold intolerance, Polydipsia, Polyuria Gastrointestinal: Reports: As per HPI. Denies: Abdominal pain, Constipation, Diarrhea, Hematemesis, Hematochezia, Melena, Nausea, Vomiting Genitourinary: Reports: As per HPI. Denies: Abnormal menses, Discharge, Dyspareunia, Dysuria, Frequency, Hematuria, Incontinence, Retention, Urgency Musculoskeletal: Reports: As per HPI. Denies: Arthralgia, Back pain, Gout, Joint swelling, Myalgia, Neck pain Skin: Reports: As per HPI. Denies: Bruising, Change in color, Change in hair/ nails, Lesions, Pruritus, Rash Neurological: Reports: As per HPI. Denies: Abnormal gait, Confusion, Headache, Numbness, Paresthesias, Seizure, Tingling, Tremors, Vertigo, Weakness Psychiatric: Reports: As per HPI. Denies: Anxiety, Auditory hallucinations, Depression, Homicidal thoughts, Suicidal thoughts, Visual hallucinations Hematological/Lymphatic: Reports: As per HPI. Denies: Anemia, Blood Clots, Easy bleeding, Easy bruising, Swollen glands Past Medical History - SOCIAL HISTORY Smoking Status: Light tobacco smoker (<10/day) Alcohol Use: Rare Drug Use: None - RESPIRATORY Hx Respiratory Disorders: Yes Hx Bronchitis: Yes - CARDIOVASCULAR Hx Cardio Disorders: No - NEURO Hx Neuro Disorders: No - GI Hx GI Disorders: Yes Hx Reflux: Yes - Hx Genitourinary Disorders: Yes Hx UTI: Yes - ENDOCRINE Hx Endocrine Disorders: No Hx Diabetes: No Hx Thyroid Disease: No - MUSCULOSKELETAL Hx Musculoskeletal Disorders: Yes Hx Arthritis: Yes - PSYCH Hx Psych Problems: No - HEMATOLOGY/ONCOLOGY Hx Hematology/Oncology Disorders: No Family Medical History Any Significant Family History?: No Hx Diabetes: Mother Hx Heart Disease: Father, Grandparents Course Vital Signs 04/20/17 17:52 Temperature 98.1 F Pulse Rate 80 Respiratory 18 Rate Blood Pressure 154/80 Pulse Ox 98 Medical Decision Making - Lab Data Lab Results 04/20/17 Range/Units 17:52 Urine Color Harvey H Urine Appearance Cloudy Urine pH 6.0 (5.0-8.0) Ur Specific Kimball 1.020 (1.002-1.030) Urine Protein 30 mg/dl H (NEGATIVE) Urine Glucose (UA) 100 mg/dl H (NEGATIVE) Urine Ketones Negative (NEGATIVE) Urine Blood Small H (NEGATIVE) Urine Nitrite Positive H (NEGATIVE) Urine Bilirubin Negative (NEGATIVE) Urine Urobilinogen 4.0 H (0.20 - 1.00) E.U./dL Ur Leukocyte Esterase Moderate H (NEGATIVE) Urine RBC 3 - 6 (NONE SEEN) Urine WBC 16 - 20 (0-2/hpf) Ur Epithelial Cells 0 - 2 (FEW) Urine Bacteria 1+ Disposition Clinical Impression: UTI (urinary tract infection), uncomplicated Disposition: Home, Self-Care Condition: (1) Good Instructions: Urinary Tract Infection in Women (ED) Additional Instructions: Take antibiotics until gone. Take pyridium as directed for 2 days for dysuria. This will turn your urine orange. Follow up with PCP as needed. Zofran every 8 hours if needed for nausea. Prescriptions: Phenazopyridine HCl [Pyridium] 200 mg PO TID #6 tab Sulfamethoxazole/Trimethoprim [Bactrim Ds Tablet] 1 each PO BID #19 tablet Forms: Patient Portal Access Quality - Quality Measures Quality Measures: N/A - Blood Pressure Screening Does Patient Have Any of the Following: No Blood Pressure Classification: Pre-Hypertensive BP Reading Systolic Measurement: 154 Diastolic Measurement: 80 Screening for High Blood Pressure: < Pre-Hypertensive BP, F/U Documented > [ G8950] Pre-Hypertensive Follow-up Interventions: Follow-up with rescreen every year.
== END 2017-04-20 18:52 | disposition home or self-care (01) ==
LOC: ER 17:49
DX: R39.0 Extravasation of urine (principal); R31.29 Other microscopic hematuria; R11.2 Nausea with vomiting, unspecified
CPT/HCPCS: 81001; J3490; 99282

== ENCOUNTER 2017-04-29 17:52 | Emergency (ER) | payer MEDICAID ==
--- NOTE | 2017-04-29 18:12 | Emergency Department Record ---
History of Present Illness - General Chief complaint: Female Urogenital Problem Stated complaint: UTI Time Seen by Provider: 04/29/17 17:54 Mode of Arrival: Ambulatory Limitations: No limitations - History of Present Illness Initial comments: The patient is here due to a 3 hour hx of dysuria. She states she was here in the ER 9 days ago and diagnosed with a UTI and given 10 days of Bactrim. She has one day left and was well until 3 hours ago when the burning with urination started again. The patient denies any nausea, vomiting, diarrhea, abdominal or back pain, vaginal swelling, or vaginal discharge. She still has one day of Bactrim left. MD Complaint: Dysuria Onset/Timin -: Hour(s) Severity: Moderate Severity scale (1-10): 8 Quality: Aching, Burning - Related Data Previous Rx's Medication Instructions Recorded Albuterol Sulfate [Proair Hfa] 1 - 2 puff IH .EVERY 4-6 HOURS PRN 09/30/16 #1 inhaler Ciprofloxacin HCl [Cipro] 500 mg PO Q12HR #14 tablet 04/29/17 Phenazopyridine HCl [Pyridium] 100 mg PO TID #6 tablet 04/29/17 Allergies Allergy/AdvReac Type Severity Reaction Status Date / Time IV contrast Allergy Severe ANAPHYLAXIS Uncoded 04/29/17 17:58 Travel Screening - Travel/Exposure Within Last 30 Days Have you traveled within the last 30 days?: No - Travel/Exposure Within Last Year Have you traveled outside the [place] in the last year?: No - Additonal Travel Details Have you been exposed to anyone with a communicable illness?: No - Travel Symptoms Symptom Screening: None Review of Systems Constitutional: Denies: Chills, Fever Eyes: Denies: Eye discharge ENT: Denies: Congestion Respiratory: Denies: Cough, Dyspnea Past Medical History - SOCIAL HISTORY Smoking Status: Light tobacco smoker (<10/day) Alcohol Use: None Drug Use: None - RESPIRATORY Hx Respiratory Disorders: Yes Hx Bronchitis: Yes - CARDIOVASCULAR Hx Cardio Disorders: No - NEURO Hx Neuro Disorders: No - GI Hx GI Disorders: Yes Hx Reflux: Yes - Hx Genitourinary Disorders: Yes Hx UTI: Yes - ENDOCRINE Hx Endocrine Disorders: No Hx Diabetes: No Hx Thyroid Disease: No - MUSCULOSKELETAL Hx Musculoskeletal Disorders: Yes Hx Arthritis: Yes - PSYCH Hx Psych Problems: No - HEMATOLOGY/ONCOLOGY Hx Hematology/Oncology Disorders: No Family Medical History Any Significant Family History?: Yes Hx Diabetes: Mother Hx Heart Disease: Father, Grandparents Physical Exam - General General Appearance: Alert, Oriented x3, Cooperative, No acute distress - Head Head exam: Atraumatic, Normocephalic, Normal inspection - Eye Eye exam: Normal appearance, PERRL - Neck Neck exam: Normal inspection, Full ROM. negative: Tenderness - Respiratory Respiratory exam: Normal lung sounds bilaterally. negative: Respiratory distress - Cardiovascular Cardiovascular Exam: Regular rate, Normal rhythm, Normal heart sounds - GI/Abdominal GI/Abdominal exam: Soft, Normal bowel sounds. negative: Guarding, Rebound, Rigid, Tenderness - Back Back exam: Denies: CVA tenderness (R), CVA tenderness (L) - Neurological Neurological exam: Alert, Normal gait. negative: Abnormal gait, Motor sensory deficit Course Vital Signs 04/29/17 17:53 Temperature 98.1 F Pulse Rate 95 H Respiratory 16 Rate Blood Pressure 164/72 Pulse Ox 96 - Reevaluation(s) Reevaluation #1: The patient is doing very well at this time. She denies any pain or discomfort. I did explain the lab results with the patient and the need for F/U. She is to stop the Bactrim and continue the Cipro. She is to see her PCP in 1-2 weeks for recheck and to make sure the infection and blood in the urine resolves. 04/29/17 18:49 Medical Decision Making - Lab Data Result diagrams: 04/29/17 18:17 04/29/17 18:17 Disposition Disposition: Discharge Clinical Impression: Hemorrhagic cystitis Disposition: Home, Self-Care Condition: (1) Good Instructions: Urinary Tract Infection in Women (ED) Additional Instructions: Please stop the Bactrim and continue the Cipro and Pyridium. Please drink plenty of fluids. Please see your PCP for recheck of your urine in 1-2 weeks to make sure the blood resolves. Return to the ER for any abdominal or back pain, fever, or vomiting. Prescriptions: Ciprofloxacin HCl [Cipro] 500 mg PO Q12HR #14 tablet Phenazopyridine HCl [Pyridium] 100 mg PO TID #6 tablet Forms: Patient Portal Access Time of Disposition: 18:53 Quality - Quality Measures Quality Measures: N/A - Blood Pressure Screening View Details: Yes Does Patient Have Any of the Following: No Blood Pressure Classification: Hypertensive Reading Systolic Measurement: 164 Diastolic Measurement: 72 Screening for High Blood Pressure: < Pre-Hypertensive BP, F/U Documented > [ G8950] Pre-Hypertensive Follow-up Interventions: Referral to alternative/primary care provider.
[2017-04-29 18:14] LABS: URINE APPEARANCE CLOUDY; URINE BILIRUBIN SMALL (NEGATIVE); URINE BLOOD LARGE (NEGATIVE); URINE COLOR YELLOW; URINE GLUCOSE (UA) NEGATIVE (NEGATIVE); URINE KETONE NEGATIVE (NEGATIVE); URINE LEUKOCYTE ESTERASE LARGE (NEGATIVE); URINE NITRITE NEGATIVE (NEGATIVE); URINE UROBILINOGEN 0.2 E.U./dL (0.20 - 1.00)
[2017-04-29 18:16] LABS: URINE BACTERIA FEW; URINE EPITHELIAL CELLS 0 - 2 (FEW)
[2017-04-29] MEDS ORDERED: CIPROFLOXACIN HCL 500 MG TABLET PO ONE (18:19)
[2017-04-29] MEDS ORDERED: PHENAZOPYRIDINE HCL 95 MG TABLET PO ONE (18:20)
[2017-04-29 18:27] LABS: HEMATOCRIT 41.3 % (35.0-47.0); MEAN CELL VOLUME 79.4 fl (81-97); MEAN CORPUSCULAR HEMOGLOBIN 26.9 pg (27-33); MEAN CORPUSCULAR HGB CONC 33.9 g/dl (32-36); MEAN PLATELET VOLUME 9.1 fl (7.4-10.4); PLATELET COUNT 283 K/uL (130-400); RED CELL DISTRIBUTION WIDTH 15.4 % (11.5-14.5); WHITE BLOOD COUNT W/O DIFF 12.2 K/uL (4.2-12.2)
[2017-04-29 18:36] LABS: PLATELET ESTIMATE NORMAL (NORMAL)
[2017-04-29 18:42] LABS: ANION GAP 7.1 (7-16); CARBON DIOXIDE 25.9 mmol/L (22-30)
== END 2017-04-29 19:02 | disposition home or self-care (01) ==
LOC: ER 17:52
DX: N30.01 Acute cystitis with hematuria (principal)
CPT/HCPCS: 80048; 81001; 85027; 99283

== ENCOUNTER 2017-05-21 10:20 | Emergency (ER) | payer MEDICAID ==
[2017-05-21] MEDS ORDERED: SODIUM CHLORIDE 0.9% 500 ML IV ONE (10:32)
--- NOTE | 2017-05-21 10:39 | Emergency Department Record ---
History of Present Illness - General Chief Complaint: Abdominal Pain Stated Complaint: ABD PAIN Time Seen by Provider: 05/21/17 10:27 Source: Patient, Family Mode of Arrival: Ambulatory Limitations: No limitations - History of Present Illness Initial Comments: 67 yo female presents with low abdominal pain for about 1.5 weeks. The pain is sharp and shooting and goes to the back as well. No fevers. No nausea or vomiting. No diarrhea. The pain seems to shoot to the vaginal area. No vaginal bleeding or DC. No diarrhea. No fevers. She has a history of appy and tubal ligation. No PCP visit for 5 years. She smokes. She had UTI's twice in April. She initially related the symptoms to urination but now urination does not cause any symptoms. MD Complaint: Abdominal pain Onset/Timin -: Days(s) Location: LLQ, RLQ Radiation: Back Severity: Moderate Quality: Aching, Burning Consistency: Constant, Intermittent Improves With: Nothing Worsens With: Nothing Associated Symptoms: Denies other symptoms - Related Data Hx Age of Menopause: 55 Previous Rx's Medication Instructions Recorded Albuterol Sulfate [Proair Hfa] 1 - 2 puff IH .EVERY 4-6 HOURS PRN 09/30/16 #1 inhaler Ciprofloxacin HCl [Cipro] 500 mg PO Q12HR #14 tablet 05/21/17 Hydrocodone/Acetaminophen [Valentine 1 each PO Q6H #15 tablet 05/21/17 5-325 Tablet] Hydrocodone/Acetaminophen [Valentine 1 tab PO Q8H PRN #15 tab 05/21/17 5mg/325mg] Metronidazole [Flagyl] 500 mg PO BID #14 tablet 05/21/17 Allergies Allergy/AdvReac Type Severity Reaction Status Date / Time IV contrast Allergy Severe ANAPHYLAXIS Uncoded 05/21/17 10:32 Travel Screening - Travel/Exposure Within Last 30 Days Have you traveled within the last 30 days?: No - Travel/Exposure Within Last Year Have you traveled outside the [place] in the last year?: No - Additonal Travel Details Have you been exposed to anyone with a communicable illness?: No - Travel Symptoms Symptom Screening: None Review of Systems Constitutional: Denies: Chills, Fever, Weakness Eyes: Denies: Eye discharge, Eye pain, Photophobia ENT: Denies: Congestion, Throat pain Respiratory: Denies: Cough, Dyspnea, Hemoptysis, Stridor, Wheezes Cardiovascular: Denies: Chest pain, Palpitations, Syncope Endocrine: Denies: Fatigue Gastrointestinal: Reports: As per HPI, Abdominal pain. Denies: Constipation, Diarrhea, Hematemesis, Hematochezia, Melena, Nausea, Vomiting Genitourinary: Reports: Dysuria. Denies: Hematuria, Incontinence, Retention, Urgency Musculoskeletal: Reports: As per HPI, Back pain. Denies: Arthralgia, Joint swelling, Myalgia Skin: Denies: Bruising, Change in color, Rash Neurological: Denies: Confusion, Headache, Numbness, Weakness Psychiatric: Denies: Anxiety Hematological/Lymphatic: Denies: Blood Clots, Easy bleeding, Easy bruising, Swollen glands Past Medical History - SOCIAL HISTORY Smoking Status: Light tobacco smoker (<10/day) Alcohol Use: None Drug Use: None - RESPIRATORY Hx Respiratory Disorders: Yes Hx Bronchitis: Yes - CARDIOVASCULAR Hx Cardio Disorders: No - NEURO Hx Neuro Disorders: No - GI Hx GI Disorders: Yes Hx Reflux: Yes - Hx Genitourinary Disorders: Yes Hx UTI: Yes (multiple) - ENDOCRINE Hx Endocrine Disorders: No Hx Diabetes: No Hx Thyroid Disease: No - MUSCULOSKELETAL Hx Musculoskeletal Disorders: Yes Hx Arthritis: Yes - PSYCH Hx Psych Problems: No - HEMATOLOGY/ONCOLOGY Hx Hematology/Oncology Disorders: No Family Medical History Any Significant Family History?: Yes Hx Diabetes: Mother Hx Heart Disease: Father, Grandparents Physical Exam - General General Appearance: Alert, Oriented x3, Cooperative, No acute distress Limitations: No limitations - Head Head exam: Normal inspection - Eye Eye exam: Normal appearance. negative: Conjunctival injection, Periorbital swelling - ENT ENT exam: Normal exam, Mucous membranes moist Ear exam: Normal external inspection Nasal Exam: Normal inspection Mouth exam: Normal external inspection - Neck Neck exam: Normal inspection, Full ROM. negative: Tenderness - Respiratory Respiratory exam: Normal lung sounds bilaterally. negative: Accessory muscle use, Respiratory distress, Rhonchi, Stridor, Wheezes - Cardiovascular Cardiovascular Exam: Regular rate, Normal rhythm, Normal heart sounds - GI/Abdominal GI/Abdominal exam: Soft, Tenderness (tender across the lower abdomen but soft, no R/G). negative: Distended, Guarding, Rebound, Rigid - exam: Normal external exam, Normal speculum exam. negative: Abnormal external exam, Adnexal mass (L), Adnexal mass (R), Cervical discharge, Vaginal bleeding, Vaginal discharge, Vaginal erythema - Extremities Extremities exam: Normal inspection, Full ROM, Normal capillary refill. negative: Tenderness - Back Back exam: Reports: Normal inspection, Full ROM. Denies: Muscle spasm, Rash noted, Tenderness - Neurological Neurological exam: Alert, Normal gait, Oriented X3, Reflexes normal - Psychiatric Psychiatric exam: Normal affect, Normal mood - Skin Skin exam: Dry, Intact, Normal color, Warm Course Vital Signs 05/21/17 10:27 Temperature 98.1 F Pulse Rate 88 Respiratory 20 Rate Blood Pressure 140/67 Pulse Ox 99 - Reevaluation(s) Reevaluation #1: No prior abdominal imaging on EMR 05/21/17 10:38 04/29/17 Urine Culture E. Coli sensitive to all tested antibiotics 05/21/17 10:39 Reevaluation #2: UA is positive for a few bacteria, small blood No acute changes on the CBC. 05/21/17 11:19 Wet prep is negative 05/21/17 11:[address] scan report was reviewed. No acute process. Diverticulosis without diverticulitis, stable splenomegaly, slightly more prominent vaginal wall than on prior study. The patient complains of low pelvic pain radiates to the vagina The wet prep was negative The labs were negative for acute changes for infection The UA demonstrated a few bacteria and a few RBC's 05/21/17 13:06 Medical Decision Making - Lab Data Result diagrams: 05/21/17 11:02 05/21/17 11:02 Disposition Disposition: Discharge Clinical Impression: Pelvic pain in female Disposition: Home, Self-Care Condition: (1) Good Instructions: Abdominal Pain (ED) Additional Instructions: Call for close follow up and any cancellations with your doctor Return if worse, fever, blood in the urine or stools, vaginal bleeding or any new concerns Prescriptions: Ciprofloxacin HCl [Cipro] 500 mg PO Q12HR #14 tablet Hydrocodone/Acetaminophen [Valentine 5mg/325mg] 1 tab PO Q8H PRN #15 tab PRN Reason: Pain - General Hydrocodone/Acetaminophen [Valentine 5-325 Tablet] 1 each PO Q6H #15 tablet Metronidazole [Flagyl] 500 mg PO BID #14 tablet Forms: Patient Portal Access Time of Disposition: 13:09 Quality - Quality Measures Quality Measures: N/A - Blood Pressure Screening Does Patient Have Any of the Following: No Blood Pressure Classification: Hypertensive Reading Systolic Measurement: 161 Diastolic Measurement: 71 Screening for High Blood Pressure: < Pre-Hypertensive BP, F/U Documented > [ G8950] Pre-Hypertensive Follow-up Interventions: Referral to alternative/primary care provider.
[2017-05-21 11:07] LABS: HEMATOCRIT 43.6 % (35.0-47.0); HEMOGLOBIN 14.5 gm/dl (11.6-16.0); MEAN CELL VOLUME 79.4 fl (81-97); MEAN CORPUSCULAR HEMOGLOBIN 26.4 pg (27-33); MEAN CORPUSCULAR HGB CONC 33.3 g/dl (32-36); MEAN PLATELET VOLUME 9.4 fl (7.4-10.4); PLATELET COUNT 255 K/uL (130-400); RED BLOOD COUNT 5.49 M/uL (3.80-5.40)
[2017-05-21 11:10] LABS: URINE APPEARANCE CLEAR; URINE BILIRUBIN NEGATIVE (NEGATIVE); URINE BLOOD SMALL (NEGATIVE); URINE COLOR YELLOW; URINE GLUCOSE (UA) NEGATIVE (NEGATIVE); URINE KETONE NEGATIVE (NEGATIVE); URINE LEUKOCYTE ESTERASE NEGATIVE (NEGATIVE); URINE NITRITE NEGATIVE (NEGATIVE); URINE PROTEIN NEGATIVE (NEGATIVE); URINE UROBILINOGEN 0.2 E.U./dL (0.20 - 1.00)
[2017-05-21 11:15] LABS: URINE BACTERIA FEW; URINE WBC 0 - 2 (0-2/hpf)
[2017-05-21 12:33] LABS: ALB/GLOB RATIO 1.3 (1.1-1.8); ALBUMIN 4.2 g/dL (4.0-5.0); BILIRUBIN,TOTAL 0.3 mg/dL (0.2-1.0); TOTAL PROTEIN 7.4 g/dL (6.6-8.7)
[2017-05-21 19:34] LABS: BLOOD UREA NITROGEN 37.5 mg/dL (8-23)
--- NOTE | 2017-05-22 08:14 | CT SCAN REPORT ---
DATE: 05/21/2017 at 1232. EXAM: CT SCAN OF THE ABDOMEN AND PELVIS WITHOUT CONTRAST. HISTORY: Lower abdominal/pelvic pain. Pain in the region of the vagina. TECHNIQUE: Following oral contrast administration, helical CT examination of the abdomen and pelvis was performed without intravenous contrast utilization. COMPARISON: CT of the abdomen and pelvis without contrast dated 10/19/2012. FINDINGS: A small, sliding-type hiatal hernia is redemonstrated. There is minor dependent atelectasis within the right lung base. A tiny subpleural nodule is noted in the posterolateral right lung base measuring approximately 2.0 mm, stable, and consistent with a benign postinflammatory nodule. The lung bases are otherwise clear. No pleural or pericardial effusion identified. Evaluation of the solid viscera is limited by lack of intravenous contrast utilization. There is redemonstration of a [id number]-characterize hypodense lesion in the posterior segment of the mid to lower right liver lobe measuring 3.6 mm. This is unchanged, consistent with a benign cyst or hemangioma. The liver is otherwise normal in appearance. The spleen remains enlarged measuring approximately 19 cm in length. This has not significantly changed. No focal splenic lesion is present. The pancreas again appears somewhat atrophic. No focal pancreatic lesion is identified. The adrenal glands are not enlarged. There is likely scarring of the anterior lower aspect of the right kidney, stable. The kidneys are otherwise normal in appearance. The gallbladder is unremarkable. No biliary ductal dilatation is seen. No intra-abdominal nor retroperitoneal lymphadenopathy is demonstrated. There is diffuse atherosclerosis. There is minor ectasia of the infrarenal abdominal aorta measuring up to 2.2 cm in diameter. No pelvic mass, lymphadenopathy, or free pelvic is seen. The uterus is positioned near the midline. Benign-appearing calcifications are scattered within the uterus, likely relating to partially calcified fibroids. No intrinsic urinary bladder abnormality is seen. The ovaries do not appear enlarged. There is diverticulosis of the distal colon. No definite diverticulitis is, however, seen. The vaginal wall appears slightly more pronounced than on the prior examination. The etiology of this is uncertain. No new lytic or blastic bone lesion is seen. There are degenerative changes scattered throughout the visualized spine, most pronounced at the lumbosacral junction where they are moderate to advanced. IMPRESSION: 1. NO DEFINITE CT EVIDENCE OF AN ACUTE INTRA-ABDOMINAL NOR INTRAPELVIC PROCESS. 2. DIVERTICULOSIS OF THE DISTAL COLON WITHOUT EVIDENCE OF DIVERTICULITIS. 3. BENIGN-APPEARING CALCIFICATIONS WITHIN THE UTERUS LIKELY RELATING TO PARTIALLY CALCIFIED SMALL FIBROIDS. 4. APPARENT SOFT TISSUE DENSITY PROMINENCE IN THE REGION OF THE VAGINA COMPARED TO PRIOR EXAMINATION. THE ETIOLOGY OF THIS IS UNCERTAIN. CLINICAL CORRELATION IS RECOMMENDED. 5. MINOR FAT DENSITY PROMINENCE WITHIN THE INGUINAL CANALS CONSISTENT WITH LIPOMAS OR SMALL, FAT-FILLED UMBILICAL HERNIAS. 6. STABLE, ICY-GSSEV-VL-CHARACTERIZE HYPODENSE LESION IN THE RIGHT LIVER LOBE CONSISTENT WITH A CYST OR HEMANGIOMA. 7. STABLE MODERATE SPLENOMEGALY. 8. SMALL HIATAL HERNIA. JOB NUMBER: [] [id number]
== END 2017-05-21 13:44 | disposition home or self-care (01) ==
LOC: ER 10:20
DX: R10.2 Pelvic and perineal pain (principal)
CPT/HCPCS: 99284 ×2; 83690; 80053; 81001; 85027; 74176; Q0111; 87210

== ENCOUNTER 2017-08-20 11:11 | Emergency (ER) | payer MEDICAID ==
[2017-08-20] MEDS ORDERED: IPRATROPIUM/ALBUTEROL (0.5MG/3MG) NEB INH ONE (11:35)
--- NOTE | 2017-08-20 11:41 | Emergency Department Record ---
History of Present Illness - General Chief Complaint: Cough Stated Complaint: Cough/ Cold Time Seen by Provider: 08/20/17 11:20 Source: Patient Mode of Arrival: Ambulatory Limitations: No limitations - History of Present Illness Initial Comments: The patient is here due to a cough, congestion, nasal drainage, and mild chest tightness for 3 days. She denies any CP, fever, or SOB but does have mild chest burning ONLY with coughing. She states her lungs feel slightly tight and she is prone to pneumonia and bronchitis and does not want to let it get that bad. MD Complaint: Cough, Nasal congestion, Rhinorrhea, Sinus pain Onset/Timin -: Days(s) Severity: Mild - Related Data Previous Rx's Medication Instructions Recorded Albuterol Sulfate [Proair Hfa] 1 - 2 puff IH .EVERY 4-6 HOURS PRN 09/30/16 #1 inhaler Levofloxacin [Levaquin] 750 mg PO DAILY #4 tab 08/20/17 Prednisone [Prednisone 20Mg] 40 mg PO DAILY #8 tab 08/20/17 Allergies Allergy/AdvReac Type Severity Reaction Status Date / Time IV contrast Allergy Severe ANAPHYLAXIS Uncoded 08/20/17 11:20 Travel Screening - Travel/Exposure Within Last 30 Days Have you traveled within the last 30 days?: No Review of Systems Constitutional: Reports: Chills, Malaise. Denies: Fever Eyes: Denies: Eye discharge ENT: Reports: Congestion Respiratory: Reports: Cough. Denies: Dyspnea Cardiovascular: Denies: Arrhythmia, Chest pain Past Medical History - SOCIAL HISTORY Smoking Status: Light tobacco smoker (<10/day) Alcohol Use: None Drug Use: None - RESPIRATORY Hx Respiratory Disorders: Yes Hx Bronchitis: Yes - CARDIOVASCULAR Hx Cardio Disorders: No - NEURO Hx Neuro Disorders: No - GI Hx GI Disorders: Yes Hx Reflux: Yes - Hx Genitourinary Disorders: Yes Hx UTI: Yes (multiple) - ENDOCRINE Hx Endocrine Disorders: No Hx Diabetes: No Hx Thyroid Disease: No - MUSCULOSKELETAL Hx Musculoskeletal Disorders: Yes Hx Arthritis: Yes - PSYCH Hx Psych Problems: No - HEMATOLOGY/ONCOLOGY Hx Hematology/Oncology Disorders: No Family Medical History Any Significant Family History?: Yes Hx Diabetes: Mother Hx Heart Disease: Father, Grandparents Physical Exam - General General Appearance: Alert, Oriented x3, Cooperative, No acute distress - Head Head exam: Atraumatic, Normocephalic, Normal inspection - Eye Eye exam: Normal appearance, PERRL - ENT ENT exam: Normal exam, Mucous membranes moist, Normal external ear exam, Normal orophraynx, TM's normal bilaterally Throat exam: Normal inspection. negative: Tonsillar erythema, Tonsillar exudate - Neck Neck exam: Normal inspection, Full ROM. negative: Lymphadenopathy, Meningismus , Tenderness - Respiratory Respiratory exam: Decreased breath sounds, Wheezes (at the bases only.). negative: Normal lung sounds bilaterally, Accessory muscle use, Prolonged expiratory - Cardiovascular Cardiovascular Exam: Regular rate, Normal rhythm, Normal heart sounds - GI/Abdominal GI/Abdominal exam: Soft, Normal bowel sounds. negative: Tenderness - Extremities Extremities exam: Normal inspection, Full ROM, Normal capillary refill. negative: Tenderness - Neurological Neurological exam: Alert. negative: Motor sensory deficit Course Vital Signs 08/20/17 11:24 Temperature 97.8 F Pulse Rate [ 82 Pulse Ox Probe] Respiratory 15 Rate Blood Pressure 146/84 [Left Arm] Pulse Ox 98 - Reevaluation(s) Reevaluation #1: The patient is doing better after the breathing tx. Her coughing is less and her aeration is improved. On exam she no longer has wheezing in the lower lobes. 08/20/17 12:21 Reevaluation #2: The patient is doing much better at this time. Her coughing has improved and she denies any SOB or ERICKA. I did explain the plan to take the Levaquin and Prednisone as directed and to see her PCP for recheck if not better. 08/20/17 12:51 Medical Decision Making - Data Complexity MDM Data: X-Ray Ordered and/or Reviewed, EKG Ordered and/or Reviewed - EKG Data -: EKG Interpreted by Me (NSR at 71, RBBB. Neg ST changes.) EKG: No Acute Changes, Unchanged From Previous (Dated 10/20/13) - Radiology Data Radiology results: Report reviewed (CXR: No acute changes per Rad.) Disposition Disposition: Discharge Clinical Impression: Bronchitis Disposition: Home, Self-Care Condition: (2) Stable Instructions: Acute Bronchitis (ED) Additional Instructions: Please continue the Prednisone and Levaquin. Please see your PCP for recheck if not better in 3 days. Return to the ER for any increased cough, fever, or any Shortness of breath or chest pain. Prescriptions: Levofloxacin [Levaquin] 750 mg PO DAILY #4 tab Prednisone [Prednisone 20Mg] 40 mg PO DAILY #8 tab Forms: Patient Portal Access Time of Disposition: 12:54 Quality - Quality Measures Quality Measures: N/A - Blood Pressure Screening View Details: Yes Does Patient Have Any of the Following: No Blood Pressure Classification: Hypertensive Reading Systolic Measurement: 152 Diastolic Measurement: 76 Screening for High Blood Pressure: < Pre-Hypertensive BP, F/U Documented > [ G8950] Pre-Hypertensive Follow-up Interventions: Referral to alternative/primary care provider.
[2017-08-20] MEDS ORDERED: METHYLPREDNISOLONE PF 125MG/VIAL IM ONE (12:17)
[2017-08-20] MEDS ORDERED: LEVOFLOXACIN 500 MG TABLET PO ONE (12:17)
--- NOTE | 2017-08-21 08:39 | RADIOLOGY REPORT ---
EXAM: CHEST, TWO VIEWS HISTORY: COUGH AND CONGESTION FOR FIVE DAYS. FEVER. TECHNIQUE: Upright PA and lateral views of the chest were obtained. Comparison: Two view chest radiographic examination dated 09/30/16. FINDINGS: The heart is normal in size and the pulmonary vasculature is nondilated. A calcified granuloma is again noted within the left mid lung measuring 4 mm, stable. Minor linear scarring versus atelectasis again demonstrated at the anterior lung base level on the lateral view. The lungs and pleural spaces are otherwise clear. There are mild degenerative changes of the visualized spine. Anterior plate and screw fusion of the lower cervical spine redemonstrated. IMPRESSION: NO EVIDENCE OF ACUTE CARDIOPULMONARY DISEASE WITHOUT CHANGE SINCE 09/30/16. JOB NUMBER: [id number] MTDD
== END 2017-08-20 13:03 | disposition home or self-care (01) ==
LOC: ER 11:11
DX: J20.9 Acute bronchitis, unspecified (principal); R07.89 Other chest pain; F17.210 Nicotine dependence, cigarettes, uncomplicated
CPT/HCPCS: 71020; 93005; 93010; 94640; 96372; 99284; J2930

== ENCOUNTER 2017-09-19 06:40 | Emergency (ER) | payer MEDICAID ==
--- NOTE | 2017-09-19 07:14 | Emergency Department Record ---
History of Present Illness - General Chief complaint: Extremity Problem Stated complaint: L HAND PAIN Time Seen by Provider: 09/19/17 06:59 Source: Patient Mode of Arrival: Ambulatory Limitations: No limitations - History of Present Illness Initial comments: The patient is here due to L wrist and hand pain for 5 days. The patient states the pain is severe and is a sharp shooting pain that travels from the hand and wrist up the arm to the elbow intermittently. The pain is worse with movement and ROM. She denies any trauma, injury, fall, fever, chills, or weakness. The patient states elevation will sometimes improve the pain and OTC medicines do help. MD Complaint: Extremity pain Onset/Timin -: Days(s) Location: Left, Hand History of Same: No Severity scale (1-10): 10 Quality: Sharp, Stabbing Consistency: Constant Improves with: Elevation Worsens with: Exertion, Palpation Associated Symptoms: Denies other symptoms - Related Data Previous Rx's Medication Instructions Recorded Albuterol Sulfate [Proair Hfa] 1 - 2 puff IH .EVERY 4-6 HOURS PRN 09/30/16 #1 inhaler Prednisone [Prednisone 20Mg] 40 mg PO DAILY #8 tab 09/19/17 Allergies Allergy/AdvReac Type Severity Reaction Status Date / Time IV contrast Allergy Severe ANAPHYLAXIS Uncoded 08/20/17 11:20 Travel Screening - Travel/Exposure Within Last 30 Days Have you traveled within the last 30 days?: No - Travel Symptoms Symptom Screening: None Review of Systems Constitutional: Denies: Chills, Fever Eyes: Denies: Eye discharge ENT: Denies: Congestion Respiratory: Denies: Cough, Dyspnea Past Medical History - SOCIAL HISTORY Smoking Status: Light tobacco smoker (<10/day) Alcohol Use: Rare Drug Use: None - RESPIRATORY Hx Respiratory Disorders: Yes Hx Bronchitis: Yes - CARDIOVASCULAR Hx Cardio Disorders: No - NEURO Hx Neuro Disorders: No - GI Hx GI Disorders: Yes Hx Reflux: Yes - Hx Genitourinary Disorders: Yes Hx UTI: Yes (multiple) - ENDOCRINE Hx Endocrine Disorders: No Hx Diabetes: No Hx Thyroid Disease: No - MUSCULOSKELETAL Hx Musculoskeletal Disorders: Yes Hx Arthritis: Yes Comment:: Rheumatoid Arthritis - PSYCH Hx Psych Problems: No - HEMATOLOGY/ONCOLOGY Hx Hematology/Oncology Disorders: No Family Medical History Any Significant Family History?: Yes Hx Diabetes: Mother Hx Heart Disease: Father, Grandparents Physical Exam - General General Appearance: Alert, Oriented x3, Cooperative, No acute distress - Head Head exam: Atraumatic, Normocephalic, Normal inspection - Eye Eye exam: Normal appearance, PERRL - Extremities Extremities exam: Normal inspection (There is no swelling, bruising, or erythema present.), Normal capillary refill, Tenderness (There is diffuse anterior and posterior L wrist tenderness. ), Other (The L hand is NVI.). negative: Full ROM (There is decreased ROM of the wrist and hand due to pain. There is minimal pain with passive finger and thumb ROM. 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 We will splint the wrist and tret her with oral steroids for home and have her F/U with her PCP and or hand doctor next week. 09/19/17 07:34 Medical Decision Making - Data Complexity MDM Data: X-Ray Ordered and/or Reviewed - Radiology Data Radiology results: Report reviewed (L Wrist: Neg.) Disposition Disposition: Discharge Clinical Impression: Wrist pain, acute Qualifiers: Laterality: left Qualified Code(s): M25.532 - Pain in left wrist Disposition: Home, Self-Care Condition: (2) Stable Instructions: Arthralgia (ED) Additional Instructions: Please take the [place] at home and continue your regular medicines as needed. Wear the splint for a week and elevate the wrist and use ice. Please continue the Prednisone tomorrow as directed and see your PCP and hand surgeon next week for recheck. Prescriptions: Prednisone [Prednisone 20Mg] 40 mg PO DAILY #8 tab Forms: Patient Portal Access Time of Disposition: 07:37 Quality - Quality Measures Quality Measures: N/A - Blood Pressure Screening View Details: Yes Does Patient Have Any of the Following: No Blood Pressure Classification: Pre-Hypertensive BP Reading Systolic Measurement: 132 Diastolic Measurement: 77 Screening for High Blood Pressure: < Pre-Hypertensive BP, F/U Documented > [ G8950] Pre-Hypertensive Follow-up Interventions: Referral to alternative/primary care provider.
[2017-09-19] MEDS: METHYLPREDNISOLONE PF 125MG/VIAL IM ONE (07:34)
[2017-09-19] MEDS: HYDROCODONE/APAP 5/325MG TABLET PO ONE (07:51)
--- NOTE | 2017-09-19 20:16 | RADIOLOGY REPORT ---
EXAM: WRIST, LEFT 3 VIEWS HISTORY: WOKE UP FIVE DAYS AGO WITH WRIST PAIN RADIATING PROXIMALLY. DIFFICULTY WITH GRIPPING OBJECTS. TECHNIQUE: Three views of the left wrist. COMPARISON: None. FINDINGS: There is normal bone mineralization. No acute fracture nor dislocation is seen. There is a round well-corticated ossific density projecting adjacent to the tip of the ulnar styloid measuring 3.7 mm. This has a chronic benign appearance. A similar small chronic-appearing calcific density projects adjacent to the lateral margin of the trapezium. There are mild degenerative changes of the first carpal-metacarpal joint. Mild dorsal soft tissue swelling suspected. IMPRESSION: 1. NO ACUTE BONE NOR JOINT ABNORMALITY. MILD DEGENERATIVE CHANGES, PRIMARILY INVOLVING THE FIRST CARPAL-METACARPAL JOINT. 2. DORSAL MEDIAL SOFT TISSUE SWELLING. JOB NUMBER: [id number] [facility]
== END 2017-09-19 07:58 | disposition home or self-care (01) ==
LOC: ER 06:40
DX: M06.4 Inflammatory polyarthropathy (principal)
CPT/HCPCS: 96372; 99283; 99284; J2930

== ENCOUNTER 2017-09-28 17:45 | Emergency (ER) | payer MEDICAID ==
[2017-09-28] MEDS ORDERED: NYSTATIN 15 GM TUBE TOP STA (18:08)
--- NOTE | 2017-09-28 18:11 | Emergency Department Record ---
History of Present Illness - General Chief complaint: Rash Stated complaint: RASH Time Seen by Provider: 09/28/17 18:08 Source: Patient, Family Mode of Arrival: Ambulatory - History of Present Illness Initial comments: 67 yo female resents with a rash under both breast for the last day. The area is irritated and silva. NO fevers. She has had yeast infections in the area in the past. No other current symptoms. She is not a diabetic. No steroids or antibiotics recently. MD complaint: Rash Onset/Timin -: Days(s) Hx Tetanus Toxoid Vaccination: Yes Year of Tetanus Vaccination: unsure Location: Generalized (under breasts) Severity: Moderate Severity scale (1-10): 7 Quality: Burning Consistency: Constant Improves with: None Worsens with: None Context: None Associated symptoms: Denies other symptoms Treatments Prior to Arrival: None - Related Data Previous Rx's Medication Instructions Recorded Albuterol Sulfate [Proair Hfa] 1 - 2 puff IH .EVERY 4-6 HOURS PRN 09/30/16 #1 inhaler Nystatin 30 gm TP BID #2 cream..g. 09/28/17 Allergies Allergy/AdvReac Type Severity Reaction Status Date / Time IV contrast Allergy Severe ANAPHYLAXIS Uncoded 08/20/17 11:20 Travel Screening - Travel/Exposure Within Last 30 Days Have you traveled within the last 30 days?: No Review of Systems Constitutional: Denies: Chills, Fever Eyes: Denies: Eye discharge, Vision change ENT: Denies: Congestion, Ear pain, Throat pain Respiratory: Denies: Cough, Dyspnea Cardiovascular: Denies: Chest pain, Syncope Endocrine: Denies: Fatigue Gastrointestinal: Denies: Abdominal pain, Diarrhea Genitourinary: Denies: Dysuria, Frequency, Urgency Musculoskeletal: Denies: Arthralgia, Back pain, Joint swelling, Myalgia Skin: Reports: As per HPI, Change in color, Rash Neurological: Denies: Headache, Weakness Psychiatric: Denies: Anxiety Hematological/Lymphatic: Denies: Blood Clots, Easy bleeding, Easy bruising, Swollen glands Past Medical History - SOCIAL HISTORY Smoking Status: Light tobacco smoker (<10/day) Alcohol Use: None Drug Use: None - RESPIRATORY Hx Respiratory Disorders: Yes Hx Bronchitis: Yes - CARDIOVASCULAR Hx Cardio Disorders: No - NEURO Hx Neuro Disorders: No - GI Hx GI Disorders: Yes Hx Reflux: Yes - Hx Genitourinary Disorders: Yes Hx UTI: Yes (multiple) - ENDOCRINE Hx Endocrine Disorders: No Hx Diabetes: No Hx Thyroid Disease: No - MUSCULOSKELETAL Hx Musculoskeletal Disorders: Yes Hx Arthritis: Yes Comment:: Rheumatoid Arthritis - PSYCH Hx Psych Problems: No - HEMATOLOGY/ONCOLOGY Hx Hematology/Oncology Disorders: No Family Medical History Any Significant Family History?: Yes Hx Diabetes: Mother Hx Heart Disease: Father, Grandparents Physical Exam - General General Appearance: Alert, Oriented x3, Cooperative, No acute distress Limitations: No limitations - Head Head exam: Normal inspection - Eye Eye exam: Normal appearance. negative: Conjunctival injection, Scleral icterus - ENT ENT exam: Normal exam Ear exam: Normal external inspection Nasal Exam: Normal inspection Mouth exam: Normal external inspection - Neck Neck exam: Normal inspection - Respiratory Respiratory exam: negative: Respiratory distress - Rectal Rectal exam: Deferred - exam: Deferred - Extremities Extremities exam: Normal inspection Image of Full Body: 1 - patchy erytema with irregular boarders under the breasts, no weeping, no pustules, bilaterally symmetric, no abnormal warmth or signs of secondary infection - Back Back exam: Reports: Normal inspection - Neurological Neurological exam: Alert, Normal gait, Oriented X3 - Psychiatric Psychiatric exam: Normal affect, Normal mood - Skin Skin exam: Erythema, Rash. negative: Cyanosis, Diaphoretic, Mottled, Normal color, Petechiae Type of lesion: Rash. negative: Abscess Course Vital Signs 09/28/17 17:56 Temperature 98.1 F Pulse Rate 98 H Respiratory 20 Rate Blood Pressure 146/81 Pulse Ox 98 - Reevaluation(s) Reevaluation #1: 09/28/17 18:16 The rash is consistent with tinea corporis Disposition Disposition: Discharge Clinical Impression: Tinea corporis Disposition: Home, Self-Care Condition: (1) Good Instructions: Tinea Corporis (ED) Additional Instructions: Call your doctor for close follow up and recheck Dry the skin very well after showering then apply the antifungal medication Prescriptions: Nystatin 30 gm TP BID #2 cream..g. Forms: Patient Portal Access Time of Disposition: 18:11 Quality - Quality Measures Quality Measures: N/A - Blood Pressure Screening Does Patient Have Any of the Following: No Blood Pressure Classification: Pre-Hypertensive BP Reading Systolic Measurement: 146 Diastolic Measurement: 81 Screening for High Blood Pressure: < Pre-Hypertensive BP, F/U Documented > [ G8950] Pre-Hypertensive Follow-up Interventions: Referral to alternative/primary care provider.
== END 2017-09-28 18:35 | disposition home or self-care (01) ==
LOC: ER 17:45
DX: B35.4 Tinea corporis (principal)
CPT/HCPCS: 99282

== ENCOUNTER 2017-10-26 16:25 | Emergency (ER) | payer MEDICAID ==
[2017-10-26] MEDS ORDERED: PENICILLIN V POTASSIUM 250 MG TAB PO ONE ×2 (16:38)
[2017-10-26] MEDS ORDERED: HYDROCODONE/APAP 5/325MG TABLET PO ONE (16:39)
--- NOTE | 2017-10-26 16:44 | Emergency Department Record ---
History of Present Illness - General Chief complaint: Dental Stated complaint: DENTAL PAIN Time Seen by Provider: 10/26/17 16:38 Source: Patient Mode of Arrival: Ambulatory Limitations: No limitations - History of Present Illness Initial comments: 67 yo female presents with #8 tooth pain, drainage and loosening the last 2 days. No trauma. No swelling. She has not seen a dentist in many years. NO fever. MD complaint: Tooth pain Onset/Timin -: Hour(s) Location: Tooth #, Upper lip Severity scale (1-10): 8 Quality: Aching Consistency: Constant, Getting worse Improves with: Other Worsens with: Eating, Movement Context- Dental: History of dental caries, Poor dental care, Other Associated Symptoms: Gum swelling, Toothache - Related Data Previous Rx's Medication Instructions Recorded Albuterol Sulfate [Proair Hfa] 1 - 2 puff IH .EVERY 4-6 HOURS PRN 09/30/16 #1 inhaler Hydrocodone/Acetaminophen [[place] 1 each PO Q8H PRN #8 tablet 10/26/17 5-325 Tablet] Penicillin V Potassium 500 mg PO Q6H #40 tablet 10/26/17 Allergies Allergy/AdvReac Type Severity Reaction Status Date / Time IV contrast Allergy Severe ANAPHYLAXIS Uncoded 08/20/17 11:20 Travel Screening - Travel/Exposure Within Last 30 Days Have you traveled within the last 30 days?: No - Travel Symptoms Symptom Screening: None Review of Systems Constitutional: Denies: Chills, Fever, Malaise, Weakness Eyes: Denies: Eye discharge, Eye pain ENT: Reports: As per HPI, Dental pain. Denies: Congestion, Throat pain Respiratory: Denies: Cough Cardiovascular: Denies: Chest pain Endocrine: Denies: Fatigue Gastrointestinal: Denies: Abdominal pain, Diarrhea, Nausea, Vomiting Genitourinary: Denies: Dysuria Musculoskeletal: Denies: Arthralgia, Back pain, Myalgia Skin: Denies: Bruising, Change in color, Rash Neurological: Denies: Headache Psychiatric: Denies: Anxiety Hematological/Lymphatic: Denies: Blood Clots, Easy bleeding, Easy bruising, Swollen glands Past Medical History - SOCIAL HISTORY Smoking Status: Light tobacco smoker (<10/day) Alcohol Use: Rare Drug Use: None - RESPIRATORY Hx Respiratory Disorders: Yes Hx Bronchitis: Yes - CARDIOVASCULAR Hx Cardio Disorders: No - NEURO Hx Neuro Disorders: No - GI Hx GI Disorders: Yes Hx Reflux: Yes - Hx Genitourinary Disorders: Yes Hx UTI: Yes (multiple) - ENDOCRINE Hx Endocrine Disorders: No Hx Diabetes: No Hx Thyroid Disease: No - MUSCULOSKELETAL Hx Musculoskeletal Disorders: Yes Hx Arthritis: Yes Comment:: Rheumatoid Arthritis - PSYCH Hx Psych Problems: No - HEMATOLOGY/ONCOLOGY Hx Hematology/Oncology Disorders: No Family Medical History Any Significant Family History?: Yes Hx Diabetes: Mother Hx Heart Disease: Father, Grandparents Physical Exam - General General Appearance: Alert, Oriented x3, Cooperative, No acute distress Limitations: No limitations - Head Head exam: Normal inspection - Eye Eye exam: Normal appearance, Conjunctival injection - ENT ENT exam: Normal exam, Mucous membranes moist, Normal orophraynx Ear exam: Normal external inspection Nasal Exam: Normal inspection Mouth exam: Normal external inspection Teeth exam: Dental caries, Dental tenderness # (8), Gingival enlargement (very mild #8 gingival enlargement, slip drainage, tooth is loose), Other. negative: Normal inspection Throat exam: Normal inspection. negative: Tonsillar erythema, Tonsillar exudate - Neck Neck exam: Normal inspection, Other (No swelling). negative: Lymphadenopathy - Respiratory Respiratory exam: Normal lung sounds bilaterally. negative: Respiratory distress - Cardiovascular Cardiovascular Exam: Regular rate, Normal rhythm, Normal heart sounds - Rectal Rectal exam: Deferred - exam: Deferred - Neurological Neurological exam: Alert, Oriented X3 - Psychiatric Psychiatric exam: Normal affect, Normal mood - Skin Skin exam: Dry, Intact, Normal color, Warm Course Vital Signs 10/26/17 16:30 Temperature 98.1 F Pulse Rate 89 Respiratory 24 Rate Blood Pressure 141/87 Pulse Ox 99 Disposition Disposition: Discharge Clinical Impression: Dental infection Disposition: Home, Self-Care Condition: (1) Good Instructions: Dental Abscess (ED) Additional Instructions: Call the numbers provided for a dentist Return if fevers, swelling, or any new concerns You will likely loose the tooth as it is loose Prescriptions: Hydrocodone/Acetaminophen [[place] 5-325 Tablet] 1 each PO Q8H PRN #8 tablet PRN Reason: Pain - General Penicillin V Potassium 500 mg PO Q6H #40 tablet Time of Disposition: 16:42 Quality - Quality Measures Quality Measures: N/A - Blood Pressure Screening Does Patient Have Any of the Following: No Blood Pressure Classification: Pre-Hypertensive BP Reading Systolic Measurement: 141 Diastolic Measurement: 87 Screening for High Blood Pressure: < Pre-Hypertensive BP, F/U Documented > [ G8950] Pre-Hypertensive Follow-up Interventions: Referral to alternative/primary care provider.
== END 2017-10-26 16:56 | disposition home or self-care (01) ==
LOC: ER 16:25
DX: K04.7 Periapical abscess without sinus (principal)
CPT/HCPCS: 99282

== ENCOUNTER 2017-12-20 09:58 | Emergency (ER) | payer MEDICAID ==
[2017-12-20 10:29] LABS: URINE APPEARANCE CLEAR; URINE BILIRUBIN NEGATIVE (NEGATIVE); URINE BLOOD TRACE-I (NEGATIVE); URINE COLOR YELLOW; URINE GLUCOSE (UA) NEGATIVE (NEGATIVE); URINE KETONE NEGATIVE (NEGATIVE); URINE LEUKOCYTE ESTERASE TRACE (NEGATIVE); URINE NITRITE NEGATIVE (NEGATIVE); URINE PROTEIN NEGATIVE (NEGATIVE); URINE UROBILINOGEN 0.2 E.U./dL (0.20 - 1.00)
[2017-12-20 10:37] LABS: URINE RBC 0 - 2 (NONE SEEN); URINE WBC 0 - 2 (0-2/hpf)
--- NOTE | 2017-12-20 10:51 | Emergency Department Record ---
History of Present Illness - General Chief complaint: Female Urogenital Problem Stated complaint: THINKS HAS UTI Time Seen by Provider: 12/20/17 10:43 Source: Patient, RN notes reviewed Mode of Arrival: Ambulatory - History of Present Illness Initial comments: frequent urination which started last night and she had two BActim DS pills left from her last UTI and she started the meds and took two pills and she came in for another script. No vaginal discharge and no signs of yeast. She has bladder pressure. She had a urinary tract infection in November and she had another ED visit in SEPTEMBER AND HAD A pelvix exam done than. with Dr. Weiner. She had some nausea and some lower abd pain. She thinks she still has a partailly treated UTI. MD Complaint: Dysuria Onset/Timin -: Hour(s) Consistency: Constant Improves with: Medication - Related Data Previous Rx's Medication Instructions Recorded Albuterol Sulfate [Proair Hfa] 1 - 2 puff IH .EVERY 4-6 HOURS PRN 09/30/16 #1 inhaler Phenazopyridine HCl [Pyridium] 200 mg PO TID #6 tab 12/20/17 Sulfamethoxazole/Trimethoprim 1 each PO BID #20 tablet 12/20/17 [Bactrim Ds Tablet] Allergies Allergy/AdvReac Type Severity Reaction Status Date / Time IV contrast Allergy Severe ANAPHYLAXIS Uncoded 12/20/17 10:20 Travel Screening - Travel/Exposure Within Last 30 Days Have you traveled within the last 30 days?: No - Travel/Exposure Within Last Year Have you traveled outside the [place] in the last year?: No - Additonal Travel Details Have you been exposed to anyone with a communicable illness?: No - Travel Symptoms Symptom Screening: None Review of Systems Reviewed: No additional complaints except as noted below Constitutional: Reports: As per HPI. Denies: Chills, Fever, Malaise, Night sweats, Weakness, Weight change Eyes: Reports: As per HPI. Denies: Eye discharge, Eye pain, Photophobia, Vision change ENT: Reports: As per HPI. Denies: Congestion, Dental pain, Ear pain, Epistaxis , Hearing loss, Throat pain Respiratory: Reports: As per HPI. Denies: Cough, Dyspnea, Hemoptysis, Stridor, Wheezes Cardiovascular: Reports: As per HPI. Denies: Arrhythmia, Chest pain, Dyspnea on exertion, Edema, Murmurs, Orthopnea, Palpitations, Paroxysmal nocturnal dyspnea, Rheumatic Fever, Syncope Endocrine: Reports: As per HPI. Denies: Fatigue, Heat or cold intolerance, Polydipsia, Polyuria Gastrointestinal: Reports: As per HPI. Denies: Abdominal pain, Constipation, Diarrhea, Hematemesis, Hematochezia, Melena, Nausea, Vomiting Genitourinary: Reports: As per HPI, Dysuria, Frequency. Denies: Abnormal menses , Discharge, Dyspareunia, Hematuria, Incontinence, Retention, Urgency Musculoskeletal: Reports: As per HPI. Denies: Arthralgia, Back pain, Gout, Joint swelling, Myalgia, Neck pain Skin: Reports: As per HPI. Denies: Bruising, Change in color, Change in hair/ nails, Lesions, Pruritus, Rash Neurological: Reports: As per HPI. Denies: Abnormal gait, Confusion, Headache, Numbness, Paresthesias, Seizure, Tingling, Tremors, Vertigo, Weakness Psychiatric: Reports: As per HPI. Denies: Anxiety, Auditory hallucinations, Depression, Homicidal thoughts, Suicidal thoughts, Visual hallucinations Hematological/Lymphatic: Reports: As per HPI. Denies: Anemia, Blood Clots, Easy bleeding, Easy bruising, Swollen glands Past Medical History - SOCIAL HISTORY Smoking Status: Light tobacco smoker (<10/day) Alcohol Use: None Drug Use: None - RESPIRATORY Hx Respiratory Disorders: Yes Hx Bronchitis: Yes - CARDIOVASCULAR Hx Cardio Disorders: No - NEURO Hx Neuro Disorders: No - GI Hx GI Disorders: Yes Hx Reflux: Yes - Hx Genitourinary Disorders: Yes Hx UTI: Yes (multiple) - ENDOCRINE Hx Endocrine Disorders: No Hx Diabetes: No Hx Thyroid Disease: No - MUSCULOSKELETAL Hx Musculoskeletal Disorders: Yes Hx Arthritis: Yes Comment:: Rheumatoid Arthritis - PSYCH Hx Psych Problems: No - HEMATOLOGY/ONCOLOGY Hx Hematology/Oncology Disorders: No Family Medical History Any Significant Family History?: No Hx Diabetes: Mother Hx Heart Disease: Father, Grandparents Physical Exam - General General Appearance: Alert, Oriented x3, Cooperative, No acute distress - Head Head exam: Normal inspection - Eye Eye exam: Normal appearance, PERRL Pupils: Normal accommodation - ENT ENT exam: Normal exam, Mucous membranes moist, Normal external ear exam, Normal orophraynx, TM's normal bilaterally Ear exam: Normal external inspection. negative: External canal tenderness Nasal Exam: Normal inspection. negative: Discharge, Sinus tenderness Mouth exam: Normal external inspection, Tongue normal Teeth exam: Normal inspection. negative: Dental caries Throat exam: Normal inspection. negative: Tonsillar erythema, Tonsillar exudate - Neck Neck exam: Normal inspection, Full ROM. negative: Tenderness - Respiratory Respiratory exam: Normal lung sounds bilaterally. negative: Respiratory distress - Cardiovascular Cardiovascular Exam: Regular rate, Normal rhythm, Normal heart sounds - GI/Abdominal GI/Abdominal exam: Soft, Normal bowel sounds. negative: Tenderness - Rectal Rectal exam: Deferred - exam: Adnexal mass (L), Adnexal tenderness (L), cervical motion tenderness, Normal external exam, Normal speculum exam. negative: Abnormal external exam, Cervical discharge, Normal bimanual exam, Vaginal discharge - Extremities Extremities exam: Normal inspection, Full ROM, Normal capillary refill. negative: Tenderness - Back Back exam: Reports: Normal inspection, Full ROM. Denies: Muscle spasm, Rash noted, Tenderness - Neurological Neurological exam: Alert, Normal gait, Oriented X3, Reflexes normal - Psychiatric Psychiatric exam: Normal affect, Normal mood - Skin Skin exam: Dry, Intact, Normal color, Warm Course Vital Signs 12/20/17 10:15 Temperature 98.6 F Pulse Rate 103 H Respiratory 16 Rate Blood Pressure 133/83 Pulse Ox 99 - Reevaluation(s) Reevaluation #1: UA doesn't look bad but she started bactrim already so it could be partially treated and so will give 10 days of bactrim and recommending she follow up with her primary and may need urology evaluation 12/20/17 13:52 Medical Decision Making - Data Complexity MDM Data: Labs Ordered and/or Reviewed, X-Ray Ordered and/or Reviewed (US some fibroids and nothing acute) - Lab Data Result diagrams: 12/20/17 11:20 12/20/17 11:20 Lab Results 12/20/17 Range/Units 10:20 Urine Color Yellow Urine Appearance Clear Urine pH 6.0 (5.0-8.0) Ur Specific [place] 1.025 (1.002-1.030) Urine Protein Negative (NEGATIVE) Urine Glucose (UA) Negative (NEGATIVE) Urine Ketones Negative (NEGATIVE) Urine Blood Trace-i (NEGATIVE) Urine Nitrite Negative (NEGATIVE) Urine Bilirubin Negative (NEGATIVE) Urine Urobilinogen 0.2 (0.20 - 1.00) E.U./dL Ur Leukocyte Esterase Trace H (NEGATIVE) Urine RBC 0 - 2 (NONE SEEN) Urine WBC 0 - 2 (0-2/hpf) Ur Epithelial Cells 7 - 10 (FEW) Disposition Clinical Impression: Dysuria Disposition: Home, Self-Care Condition: (1) Good Instructions: Dysuria (ED) Additional Instructions: follow up with primary DR. and will need to follow up with urology for recurrent UTI and dysuria Prescriptions: Phenazopyridine HCl [Pyridium] 200 mg PO TID #6 tab Sulfamethoxazole/Trimethoprim [Bactrim Ds Tablet] 1 each PO BID #20 tablet Forms: Patient Portal Access Time of Disposition: 13:53 Quality - Quality Measures Quality Measures: N/A - Blood Pressure Screening Does Patient Have Any of the Following: No Blood Pressure Classification: Pre-Hypertensive BP Reading Systolic Measurement: 133 Diastolic Measurement: 83 Screening for High Blood Pressure: < Pre-Hypertensive BP, F/U Documented > [ G8950] Pre-Hypertensive Follow-up Interventions: Referral to alternative/primary care provider.
[2017-12-20] MEDS ORDERED: SODIUM CHLORIDE 0.9% 500 ML IV ONE (11:01)
[2017-12-20 11:27] LABS: HEMOGLOBIN 14.9 gm/dl (11.6-16.0); MEAN CELL VOLUME 81.1 fl (81-97); MEAN CORPUSCULAR HGB CONC 32.4 g/dl (32-36); MEAN PLATELET VOLUME 9.4 fl (7.4-10.4); PLATELET COUNT 252 K/uL (130-400); RED BLOOD COUNT 5.67 M/uL (3.80-5.40); RED CELL DISTRIBUTION WIDTH 15.4 % (11.5-14.5)
[2017-12-20 11:36] LABS: MEAN CORPUSCULAR HEMOGLOBIN 26.2 pg (27-33)
[2017-12-20 11:39] LABS: CREATININE 1.1 mg/dL (0.5-0.9)
[2017-12-20 11:44] LABS: PLATELET ESTIMATE NORMAL (NORMAL)
--- NOTE | 2017-12-21 22:29 | ULTRASOUND REPORT ---
EXAM: ULTRASOUND PELVIC W TRANSVAG (NON-OB) HISTORY: LOWER PELVIC PAIN ON LEFT SIDE, SOME NAUSEA. FREQUENT UTI's. TECHNIQUE: Real-time ultrasound examination of the pelvis performed utilizing transabdominal and transvaginal technique. Because of the history of pain, Doppler ultrasound performed with color-flow and spectral analysis. COMPARISON: No prior pelvic ultrasound with which to compare. FINDINGS: Transabdominal Pelvic Images: The uterus is identified measuring approximately 4.1 cm in AP, by 3.5 cm in transverse diameters and 6.2 cm in length. The uterus is relatively visualized, however, on the transabdominal approach. Endometrial stripe is not clearly seen and therefore not measured. Neither ovary confidently identified and therefore not measured as well. No obvious adnexal mass or free fluid seen. Transvaginal Pelvic Images: In an effort to better visualize the gynecologic viscera, which was relatively poorly seen in the transabdominal approach, transvaginal study was also performed. There are some small cervical nabothian cysts present. Endometrial stripe is better seen transvaginally and measures about 4 mm in size, within normal limits. However, there does appear to be a small amount of fluid in the endometrial canal, nonspecific. There is a partially calcified focus about 1.3 cm in size in the uterine fundus, likely representing a partially calcified leiomyoma. A hypoechoic but solid-appearing mass without obvious calcification is seen further posteriorly in the uterus measuring about 1.4 cm in diameter, also likely a leiomyoma. There is a third, larger mass containing some calcifications in the uterus as well measuring up to about 2.7 cm in size, again likely a leiomyoma. The right ovary is identified measuring 2.3 cm in size and contains a small cyst about 1 cm in size. Arterial and venous flow evident in the right ovary with color-flow and spectral analysis Doppler. The left ovary is identified measuring about 2.2 cm in size and also demonstrating arterial and venous flow. No adnexal/ovarian mass seen on the left. IMPRESSION: 1. APPROXIMATELY 1 CM RIGHT OVARIAN CYST. THE OVARIES APPEAR OTHERWISE NEGATIVE BILATERALLY. 2. NO FREE FLUID EVIDENT. 3. MULTIPLE SOLID MASSES IN THE UTERUS, AT LEAST THREE IN NUMBER, TWO OF WHICH CONTAIN CALCIFICATION AND LIKELY ALL REPRESENT LEIOMYOMAS, THE LARGEST MEASURING ABOUT 2.7 CM IN SIZE. 4. SMALL AMOUNT OF FLUID IN THE ENDOMETRIAL CANAL IS NONSPECIFIC. 5. A COUPLE SMALL CERVICAL NABOTHIAN CYSTS. JOB NUMBER: [id number] MTDD
[2017-12-23 14:34] LABS: GC SPECIMEN TYPE Vaginal
== END 2017-12-20 14:10 | disposition home or self-care (01) ==
LOC: ER 09:58
DX: R30.0 Dysuria (principal); R10.2 Pelvic and perineal pain; R11.0 Nausea; F17.210 Nicotine dependence, cigarettes, uncomplicated; Z87.440 Personal history of urinary (tract) infections
CPT/HCPCS: 99283; 99284; 80048; 81001; 85027; 76856; 76830; Q0111; 87210

== ENCOUNTER 2018-04-30 08:27 | Emergency (ER) | payer MEDICAID ==
--- NOTE | 2018-04-30 08:52 | Emergency Department Record ---
History of Present Illness - General Chief complaint: ENT Stated complaint: RT SIDE GUM, TONGUE RAW Time Seen by Provider: 04/30/18 08:45 Source: RN notes reviewed Mode of Arrival: Ambulatory - History of Present Illness Initial comments: right sided lower gum pain and some swelling in the cheek above the gum. possibly a small abcess starting but nothing to drain at this time all teeth gone in that area. tendor to palpate her right lower jaw bone. Onset/Timin -: Days(s) Severity scale (1-10): 8 Quality: Aching Consistency: Constant Improves with: None Worsens with: Swallowing - Related Data Previous Rx's Medication Instructions Recorded Cephalexin [Keflex] 500 mg PO QID #40 cap 04/30/18 Allergies Allergy/AdvReac Type Severity Reaction Status Date / Time Iodinated Contrast- Oral and Allergy Severe ANAPHYLAXIS Verified 04/30/18 08:40 IV Dye Travel Screening - Travel/Exposure Within Last 30 Days Have you traveled within the last 30 days?: No - Travel/Exposure Within Last Year Have you traveled outside the [place] in the last year?: No - Additonal Travel Details Have you been exposed to anyone with a communicable illness?: No - Travel Symptoms Symptom Screening: None Review of Systems Reviewed: No additional complaints except as noted below Constitutional: Reports: As per HPI. Denies: Chills, Fever, Malaise, Night sweats, Weakness, Weight change Eyes: Reports: As per HPI. Denies: Eye discharge, Eye pain, Photophobia, Vision change ENT: Reports: As per HPI, Dental pain (gum pain). Denies: Congestion, Ear pain , Epistaxis, Hearing loss, Throat pain Respiratory: Reports: As per HPI. Denies: Cough, Dyspnea, Hemoptysis, Stridor, Wheezes Cardiovascular: Reports: As per HPI. Denies: Arrhythmia, Chest pain, Dyspnea on exertion, Edema, Murmurs, Orthopnea, Palpitations, Paroxysmal nocturnal dyspnea, Rheumatic Fever, Syncope Endocrine: Reports: As per HPI. Denies: Fatigue, Heat or cold intolerance, Polydipsia, Polyuria Gastrointestinal: Reports: As per HPI. Denies: Abdominal pain, Constipation, Diarrhea, Hematemesis, Hematochezia, Melena, Nausea, Vomiting Genitourinary: Reports: As per HPI. Denies: Abnormal menses, Discharge, Dyspareunia, Dysuria, Frequency, Hematuria, Incontinence, Retention, Urgency Musculoskeletal: Reports: As per HPI. Denies: Arthralgia, Back pain, Gout, Joint swelling, Myalgia, Neck pain Skin: Reports: As per HPI. Denies: Bruising, Change in color, Change in hair/ nails, Lesions, Pruritus, Rash Neurological: Reports: As per HPI. Denies: Abnormal gait, Confusion, Headache, Numbness, Paresthesias, Seizure, Tingling, Tremors, Vertigo, Weakness Psychiatric: Reports: As per HPI. Denies: Anxiety, Auditory hallucinations, Depression, Homicidal thoughts, Suicidal thoughts, Visual hallucinations Hematological/Lymphatic: Reports: As per HPI. Denies: Anemia, Blood Clots, Easy bleeding, Easy bruising, Swollen glands Past Medical History - SOCIAL HISTORY Smoking Status: Light tobacco smoker (<10/day) Alcohol Use: None Drug Use: None - RESPIRATORY Hx Respiratory Disorders: Yes Hx Bronchitis: Yes - CARDIOVASCULAR Hx Cardio Disorders: No - NEURO Hx Neuro Disorders: No - GI Hx GI Disorders: Yes Hx Reflux: Yes - Hx Genitourinary Disorders: Yes Hx UTI: Yes (multiple) - ENDOCRINE Hx Endocrine Disorders: No Hx Diabetes: No Hx Thyroid Disease: No - MUSCULOSKELETAL Hx Musculoskeletal Disorders: Yes Hx Arthritis: Yes Comment:: Rheumatoid Arthritis - PSYCH Hx Psych Problems: No - HEMATOLOGY/ONCOLOGY Hx Hematology/Oncology Disorders: No Family Medical History Any Significant Family History?: No Hx Diabetes: Mother Hx Heart Disease: Father, Grandparents Physical Exam - General General Appearance: Alert, Oriented x3, Cooperative, No acute distress - Head Head exam: Normal inspection - Eye Eye exam: Normal appearance, PERRL Pupils: Normal accommodation - ENT ENT exam: Normal exam, Mucous membranes moist, Normal external ear exam, Normal orophraynx, TM's normal bilaterally Ear exam: Normal external inspection. negative: External canal tenderness Nasal Exam: Normal inspection. negative: Discharge, Sinus tenderness Mouth exam: Normal external inspection, Tongue normal Teeth exam: Dental tenderness #, Other (most of the teeth gone in the right lower gum and some swelling in her right cheek). negative: Dental caries Throat exam: Normal inspection. negative: Tonsillar erythema, Tonsillar exudate - Neck Neck exam: Normal inspection, Full ROM. negative: Tenderness - Respiratory Respiratory exam: Normal lung sounds bilaterally. negative: Respiratory distress - Cardiovascular Cardiovascular Exam: Regular rate, Normal rhythm, Normal heart sounds - GI/Abdominal GI/Abdominal exam: Soft, Normal bowel sounds. negative: Tenderness - Rectal Rectal exam: Deferred - exam: Deferred - Extremities Extremities exam: Normal inspection, Full ROM, Normal capillary refill. negative: Tenderness - Back Back exam: Reports: Normal inspection, Full ROM. Denies: Muscle spasm, Rash noted, Tenderness - Neurological Neurological exam: Alert, Normal gait, Oriented X3, Reflexes normal - Psychiatric Psychiatric exam: Normal affect, Normal mood - Skin Skin exam: Dry, Intact, Normal color, Warm Course Vital Signs 04/30/18 08:31 Temperature 98.1 F Pulse Rate 81 Respiratory 16 Rate Blood Pressure 148/73 Pulse Ox 97 Disposition Clinical Impression: Gingivitis, Dental infection, Cellulitis of cheek Disposition: Home, Self-Care Condition: (1) Good Instructions: Dental Abscess (ED), Toothache (ED) Additional Instructions: warm water rinses ten times a day follow up with a dentist in one week follow up with Dr. Nascimento in one week keflex 500 mg four times a day motrin OTC three pills three times a day Prescriptions: Cephalexin [Keflex] 500 mg PO QID #40 cap Time of Disposition: 08:53 Quality - Quality Measures Quality Measures: N/A - Blood Pressure Screening Does Patient Have Any of the Following: No Blood Pressure Classification: Hypertensive Reading Systolic Measurement: 148 Diastolic Measurement: 73 Screening for High Blood Pressure: < Pre-Hypertensive BP, F/U Documented > [ G8950] Pre-Hypertensive Follow-up Interventions: Referral to alternative/primary care provider.
== END 2018-04-30 09:05 | disposition home or self-care (01) ==
LOC: ER 08:27
DX: L03.211 Cellulitis of face (principal); K05.10 Chronic gingivitis, plaque induced; K04.7 Periapical abscess without sinus; F17.210 Nicotine dependence, cigarettes, uncomplicated
CPT/HCPCS: 99282

== ENCOUNTER 2018-05-03 11:02 | Emergency (ER) | payer MEDICAID ==
--- NOTE | 2018-05-03 11:30 | Emergency Department Record ---
History of Present Illness - General Chief complaint: Pain Stated complaint: PAIN R SIDE OF MOUTH Time Seen by Provider: 05/03/18 11:12 Source: Patient Mode of Arrival: Ambulatory Limitations: No limitations - History of Present Illness Initial comments: pt has increased pain in r lower jaw and tongue. she has been taking keflex for 2 days. Complaint: Other Onset/Timin -: Days(s) Location: Right, Other History of Same: Yes Consistency: Constant, Getting worse Worsens with: Palpation - Related Data Previous Rx's Medication Instructions Recorded Cephalexin [Keflex] 500 mg PO QID #40 cap 04/30/18 Amoxicillin/Potassium Clav 1 tab PO BID #14 tab 05/03/18 [Augmentin 875-125 Tablet] Hydrocodone/Acetaminophen [[place] 1 each PO Q8HR #7 tablet 05/03/18 5-325 Tablet] Allergies Allergy/AdvReac Type Severity Reaction Status Date / Time Iodinated Contrast- Oral and Allergy Severe ANAPHYLAXIS Verified 04/30/18 08:40 IV Dye Travel Screening - Travel/Exposure Within Last 30 Days Have you traveled within the last 30 days?: No - Travel/Exposure Within Last Year Have you traveled outside the [place] in the last year?: No - Additonal Travel Details Have you been exposed to anyone with a communicable illness?: No - Travel Symptoms Symptom Screening: None Review of Systems Reviewed: No additional complaints except as noted below Constitutional: Reports: As per HPI. Denies: Chills, Fever, Malaise, Night sweats, Weakness, Weight change Eyes: Reports: As per HPI. Denies: Eye discharge, Eye pain, Photophobia, Vision change ENT: Reports: As per HPI. Denies: Congestion, Dental pain, Ear pain, Epistaxis , Hearing loss, Throat pain Respiratory: Reports: As per HPI. Denies: Cough, Dyspnea, Hemoptysis, Stridor, Wheezes Cardiovascular: Reports: As per HPI. Denies: Arrhythmia, Chest pain, Dyspnea on exertion, Edema, Murmurs, Orthopnea, Palpitations, Paroxysmal nocturnal dyspnea, Rheumatic Fever, Syncope Endocrine: Reports: As per HPI. Denies: Fatigue, Heat or cold intolerance, Polydipsia, Polyuria Gastrointestinal: Reports: As per HPI. Denies: Abdominal pain, Constipation, Diarrhea, Hematemesis, Hematochezia, Melena, Nausea, Vomiting Genitourinary: Reports: As per HPI. Denies: Abnormal menses, Discharge, Dyspareunia, Dysuria, Frequency, Hematuria, Incontinence, Retention, Urgency Musculoskeletal: Reports: As per HPI. Denies: Arthralgia, Back pain, Gout, Joint swelling, Myalgia, Neck pain Skin: Reports: As per HPI. Denies: Bruising, Change in color, Change in hair/ nails, Lesions, Pruritus, Rash Neurological: Reports: As per HPI. Denies: Abnormal gait, Confusion, Headache, Numbness, Paresthesias, Seizure, Tingling, Tremors, Vertigo, Weakness Psychiatric: Reports: As per HPI. Denies: Anxiety, Auditory hallucinations, Depression, Homicidal thoughts, Suicidal thoughts, Visual hallucinations Hematological/Lymphatic: Reports: As per HPI. Denies: Anemia, Blood Clots, Easy bleeding, Easy bruising, Swollen glands Past Medical History - SOCIAL HISTORY Smoking Status: Light tobacco smoker (<10/day) Alcohol Use: None Drug Use: None - RESPIRATORY Hx Respiratory Disorders: Yes Hx Bronchitis: Yes - CARDIOVASCULAR Hx Cardio Disorders: No - NEURO Hx Neuro Disorders: No - GI Hx GI Disorders: Yes Hx Reflux: Yes - Hx Genitourinary Disorders: Yes Hx UTI: Yes (multiple) - ENDOCRINE Hx Endocrine Disorders: No Hx Diabetes: No Hx Thyroid Disease: No - MUSCULOSKELETAL Hx Musculoskeletal Disorders: Yes Hx Arthritis: Yes Comment:: Rheumatoid Arthritis - PSYCH Hx Psych Problems: No - HEMATOLOGY/ONCOLOGY Hx Hematology/Oncology Disorders: No Family Medical History Any Significant Family History?: No Hx Diabetes: Mother Hx Heart Disease: Father, Grandparents Physical Exam - General General Appearance: Alert, Oriented x3, Cooperative, Mild distress - Head Head exam: Normal inspection - Eye Eye exam: Normal appearance, PERRL, EOMI Pupils: Normal accommodation - ENT ENT exam: Normal exam, Mucous membranes moist, Normal external ear exam, Normal orophraynx, TM's normal bilaterally Ear exam: Normal external inspection. negative: External canal tenderness Nasal Exam: Normal inspection. negative: Discharge, Sinus tenderness Mouth exam: Normal external inspection, Tongue normal Teeth exam: Dental caries, Dental tenderness #, Gingival enlargement Throat exam: Normal inspection. negative: Tonsillar erythema, Tonsillar exudate - Neck Neck exam: Normal inspection, Full ROM. negative: Tenderness - Respiratory Respiratory exam: Normal lung sounds bilaterally. negative: Respiratory distress - Cardiovascular Cardiovascular Exam: Regular rate, Normal rhythm, Normal heart sounds - GI/Abdominal GI/Abdominal exam: Soft, Normal bowel sounds. negative: Tenderness - Rectal Rectal exam: Deferred - exam: Deferred - Extremities Extremities exam: Normal inspection, Full ROM, Normal capillary refill. negative: Tenderness - Back Back exam: Reports: Normal inspection, Full ROM. Denies: Muscle spasm, Rash noted, Tenderness - Neurological Neurological exam: Alert, CN II-XII intact, Normal gait, Oriented X3 - Psychiatric Psychiatric exam: Normal affect, Normal mood - Skin Skin exam: Dry, Intact, Normal color, Warm Course Vital Signs 05/03/18 11:10 Temperature 97.6 F Pulse Rate 98 H Respiratory 16 Rate Blood Pressure 155/71 Pulse Ox 98 Disposition Disposition: Discharge Clinical Impression: Pain, dental Disposition: Home, Self-Care Condition: (1) Good Instructions: Dental Abscess (ED) Additional Instructions: follow up with dentist miguelina. return sooner if worse. take motrin with food Prescriptions: Hydrocodone/Acetaminophen [[place] 5-325 Tablet] 1 each PO Q8HR #7 tablet Amoxicillin/Potassium Clav [Augmentin 875-125 Tablet] 1 tab PO BID #14 tab Quality - Quality Measures Quality Measures: N/A - Blood Pressure Screening Does Patient Have Any of the Following: No Blood Pressure Classification: Hypertensive Reading Systolic Measurement: 155 Diastolic Measurement: 71 Screening for High Blood Pressure: < First Hypertensive BP, F/U Documented > [ G8950] First Hypertensive Follow-up Interventions: Follow-up with rescreen GT 1 day and LT 4 weeks.
== END 2018-05-03 11:45 | disposition home or self-care (01) ==
LOC: ER 11:02
DX: K08.89 Other specified disorders of teeth and supporting structures (principal); F17.210 Nicotine dependence, cigarettes, uncomplicated
CPT/HCPCS: 99282

== ENCOUNTER 2018-05-10 07:03 | Emergency (ER) | payer MEDICAID ==
[2018-05-10] MEDS ORDERED: SODIUM CHLORIDE 0.9% 500 ML IV ONE (07:08)
[2018-05-10] MEDS ORDERED: METHYLPREDNISOLONE PF 125MG/VIAL IVP ONE (07:09)
[2018-05-10] MEDS ORDERED: DIPHENHYDRAMINE HCL 50 MG/ML VIAL IVP ONE (07:09)
--- NOTE | 2018-05-10 07:15 | Emergency Department Record ---
History of Present Illness - General Chief Complaint: Dizziness Stated Complaint: DIZZINESS/HIVES Time Seen by Provider: 05/10/18 07:07 Source: Patient Mode of Arrival: Wheelchair Limitations: No limitations - History of Present Illness Initial Comments: 67 yo female presents with hives that started mild last night around 10pm. She woke up with worse hives this morning. No shortness of breath, facial or lip swelling. The hives cover the back and are on both arms. She is unsure of the exposure. She is feeling lightheaded and dizzy as well. No nausea or vomiting. She is a smoker that rarely requires breathing treatments. No prior similar reactions. She is on her last day of Amoxicillin for a tooth infection MD Complaint: Lightheadedness, Other (Hives) Onset/Timin -: Hour(s) Timing: Awoke with symptoms Description: Lightheadedness, "Room spinning" History of Same: No History of Trauma: No Severity: Moderate Improves With: Nothing Worsens With: Nothing Associated Symptoms: Rash - [place] Coma Scale Eye Response: (4) Open spontaneously Motor Response: (6) Obeys commands Verbal Response: (5) Oriented Foreign Total: 15 - Related Data Previous Rx's Medication Instructions Recorded Diphenhydramine HCl [Benadryl] 25 mg PO Q6H #30 cap 05/10/18 Prednisone [Prednisone 20Mg] 20 mg PO BID #14 tab 05/10/18 Allergies Allergy/AdvReac Type Severity Reaction Status Date / Time Iodinated Contrast- Oral and Allergy Severe ANAPHYLAXIS Verified 04/30/18 08:40 IV Dye Travel Screening - Travel/Exposure Within Last 30 Days Have you traveled within the last 30 days?: No Review of Systems Constitutional: Denies: Chills, Fever, Weakness Eyes: Denies: Eye discharge, Eye pain, Vision change ENT: Denies: Congestion, Throat pain Respiratory: Denies: Cough, Dyspnea, Wheezes Cardiovascular: Denies: Chest pain, Dyspnea on exertion, Edema, Palpitations, Syncope Endocrine: Denies: Fatigue Gastrointestinal: Denies: Abdominal pain, Diarrhea, Nausea, Vomiting Genitourinary: Denies: Dysuria, Urgency Musculoskeletal: Denies: Arthralgia, Back pain, Myalgia Skin: Reports: As per HPI, Change in color, Pruritus, Rash. Denies: Bruising Neurological: Reports: Vertigo. Denies: Headache Psychiatric: Reports: Anxiety Hematological/Lymphatic: Denies: Blood Clots, Easy bleeding, Easy bruising, Swollen glands Past Medical History - SOCIAL HISTORY Smoking Status: Light tobacco smoker (<10/day) - RESPIRATORY Hx Respiratory Disorders: Yes Hx Bronchitis: Yes - CARDIOVASCULAR Hx Cardio Disorders: No - NEURO Hx Neuro Disorders: No - GI Hx GI Disorders: Yes Hx Reflux: Yes - Hx Genitourinary Disorders: Yes Hx UTI: Yes (multiple) - ENDOCRINE Hx Endocrine Disorders: No Hx Diabetes: No Hx Thyroid Disease: No - MUSCULOSKELETAL Hx Musculoskeletal Disorders: Yes Hx Arthritis: Yes Comment:: Rheumatoid Arthritis - PSYCH Hx Psych Problems: No - HEMATOLOGY/ONCOLOGY Hx Hematology/Oncology Disorders: No Family Medical History Any Significant Family History?: Yes Hx Diabetes: Mother Hx Heart Disease: Father, Grandparents Physical Exam - General General Appearance: Alert, Oriented x3, Cooperative, No acute distress Limitations: No limitations - Head Head exam: Normal inspection - Eye Eye exam: Normal appearance, PERRL. negative: Conjunctival injection, Scleral icterus - ENT ENT exam: Normal exam, Mucous membranes moist, Normal orophraynx Ear exam: Normal external inspection Nasal Exam: Normal inspection Mouth exam: Normal external inspection Teeth exam: Normal inspection Throat exam: Normal inspection - Neck Neck exam: Normal inspection, Full ROM. negative: Tenderness - Respiratory Respiratory exam: Normal lung sounds bilaterally. negative: Accessory muscle use, Chest wall tenderness, Decreased breath sounds, Prolonged expiratory, Respiratory distress, Rhonchi, Stridor, Wheezes - Cardiovascular Cardiovascular Exam: Regular rate, Normal rhythm, Normal heart sounds - GI/Abdominal GI/Abdominal exam: Soft. negative: Tenderness - Rectal Rectal exam: Deferred - exam: Deferred - Extremities Extremities exam: negative: Normal inspection (hives on the arms), Pedal edema, Tenderness - Back Back exam: Reports: Rash noted. Denies: Normal inspection (hives on the back) - Neurological Neurological exam: Alert, Oriented X3 - Psychiatric Psychiatric exam: Normal affect, Normal mood - Skin Skin exam: Urticaria Type of lesion: Rash Distribution of rash: Back, RUE, LUE Course - Reevaluation(s) Reevaluation #1: EKG EKG #1: 0708 Rate: 86 Rhythm: sinus [place]: normal Intervals: RBBB ST segments: C/W RBBB Prior: 08/20/17 Prior RBBB noted 05/10/18 07:20 05/10/18 07:43 No acute changes on the BMP CBC WBC is 14 05/10/18 07:49 The patient on recheck is much improved resting comfortably 05/10/18 08:20 The patient is doing well and is comfortable with DC. DC vitals were reviewed. The hives are very mild. Calm relaxed breathing. No dizziness. We discussed at length reasons to immediately return to the ED as well as close follow up. The patient will call the PCP for close follow up of this ED visit to review this visit and the tests performed We discussed the dosing of the medications, possible referral to an wood casket maker by her PCP if this is a recurrent issue for her Medical Decision Making - Lab Data Result diagrams: 05/10/18 07:13 05/10/18 07:13 Disposition Disposition: Discharge Clinical Impression: Hives Disposition: Home, Self-Care Condition: (1) Good Instructions: Urticaria (ED) Additional Instructions: Take the prescriptions provided today as directed. Call your family doctor. Call to schedule the next available appointment for a recheck. Return to ED if your symptoms worsen or if you have any new concerns. Review the final Emergency Record and test results with your doctor on follow up Take 1-2 Benadryl (25mg) every 6 hours for the next 24 hours Take the Prednisone as directed twice daily for one week Stop the antibiotic Your doctor may discuss with you a referral to an wood casket maker if future reactions like this are a concern Prescriptions: Diphenhydramine HCl [Benadryl] 25 mg PO Q6H #30 cap Prednisone [Prednisone 20Mg] 20 mg PO BID #14 tab Forms: Patient Portal Access Time of Disposition: 08:22 Quality - Quality Measures Quality Measures: N/A - Blood Pressure Screening Does Patient Have Any of the Following: No Blood Pressure Classification: Pre-Hypertensive BP Reading Systolic Measurement: 128 Diastolic Measurement: 71 Screening for High Blood Pressure: < Pre-Hypertensive BP, F/U Documented > [ G8950] Pre-Hypertensive Follow-up Interventions: Referral to alternative/primary care provider.
[2018-05-10 07:26] LABS: HEMATOCRIT 49.3 % (35.0-47.0); HEMOGLOBIN 16.3 gm/dl (11.6-16.0); MEAN CELL VOLUME 81.2 fl (81-97); MEAN CORPUSCULAR HGB CONC 33.1 g/dl (32-36); MEAN PLATELET VOLUME 9.9 fl (7.4-10.4); PLATELET COUNT 272 K/uL (130-400); RED BLOOD COUNT 6.07 M/uL (3.80-5.40); RED CELL DISTRIBUTION WIDTH 16.9 % (11.5-14.5); WHITE BLOOD COUNT W/O DIFF 14.3 K/uL (4.2-12.2)
[2018-05-10 07:31] LABS: MEAN CORPUSCULAR HEMOGLOBIN 26.8 pg (27-33)
== END 2018-05-10 08:45 | disposition home or self-care (01) ==
LOC: ER 07:03
DX: L50.9 Urticaria, unspecified (principal); R42 Dizziness and giddiness; F17.210 Nicotine dependence, cigarettes, uncomplicated
CPT/HCPCS: 80048; 85027; 93005; 93010; 96361; 96374; 96375; 99284; J1200; J2930

== ENCOUNTER 2018-10-16 09:44 | Emergency (ER) | payer MEDICARE, MEDICAID ==
--- NOTE | 2018-10-16 10:01 | Emergency Department Record ---
History of Present Illness - General Chief complaint: ENT Stated complaint: SORE THROAT, CONGESTION Time Seen by Provider: 10/16/18 10:00 Source: Patient Mode of Arrival: Ambulatory Limitations: No limitations - History of Present Illness Initial comments: 68 yo female presents two days of cough, sore throat and runny nose. She has had some body aches as well. She did not have a flu shot this year. No vomiting or diarrhea. No rash. No chest pain. She states her muscles do ache. No blood in the sputum. The PCP is the [facility]. Onset/Timin -: Days(s) Location: Throat Severity scale (1-10): 8 Quality: Aching Consistency: Constant Improves with: None Worsens with: None Associated Symptoms: Cough, Sore throat, Other - Related Data Previous Rx's Medication Instructions Recorded Oseltamivir Phosphate [Tamiflu] 75 mg PO BID #10 capsule 10/16/18 Allergies Allergy/AdvReac Type Severity Reaction Status Date / Time Iodinated Contrast- Oral and Allergy Severe ANAPHYLAXIS Verified 04/30/18 08:40 IV Dye Travel Screening - Travel/Exposure Within Last 30 Days Have you traveled within the last 30 days?: No Review of Systems Constitutional: Reports: Fever. Denies: Chills, Malaise, Weakness Eyes: Denies: Eye discharge ENT: Reports: Congestion, Throat pain. Denies: Ear pain Respiratory: Reports: Cough. Denies: Dyspnea, Hemoptysis, Stridor, Wheezes Cardiovascular: Denies: Chest pain, Palpitations, Syncope Endocrine: Denies: Fatigue Gastrointestinal: Denies: Abdominal pain, Diarrhea, Nausea, Vomiting Genitourinary: Denies: Discharge, Dyspareunia, Dysuria Musculoskeletal: Denies: Arthralgia, Back pain, Joint swelling, Myalgia, Neck pain Skin: Denies: Bruising, Change in color, Rash Neurological: Denies: Confusion, Headache Psychiatric: Denies: Anxiety Hematological/Lymphatic: Denies: Blood Clots, Easy bleeding, Easy bruising, Swollen glands Past Medical History - SOCIAL HISTORY Smoking Status: Light tobacco smoker (<10/day) - RESPIRATORY Hx Respiratory Disorders: Yes Hx Bronchitis: Yes - CARDIOVASCULAR Hx Cardio Disorders: No - NEURO Hx Neuro Disorders: No - GI Hx GI Disorders: Yes Hx Reflux: Yes - Hx Genitourinary Disorders: Yes Hx UTI: Yes (multiple) - ENDOCRINE Hx Endocrine Disorders: No Hx Diabetes: No Hx Thyroid Disease: No - MUSCULOSKELETAL Hx Musculoskeletal Disorders: Yes Hx Arthritis: Yes Comment:: Rheumatoid Arthritis - PSYCH Hx Psych Problems: No - HEMATOLOGY/ONCOLOGY Hx Hematology/Oncology Disorders: No Family Medical History Any Significant Family History?: Yes Hx Diabetes: Mother Hx Heart Disease: Father, Grandparents Physical Exam - General General Appearance: Alert, Oriented x3, Cooperative, No acute distress Limitations: No limitations - Head Head exam: Atraumatic, Normal inspection - Eye Eye exam: Normal appearance, PERRL. negative: Conjunctival injection, Scleral icterus - ENT ENT exam: Normal exam, Mucous membranes moist, Normal orophraynx, TM's normal bilaterally. negative: Mucous membranes dry Ear exam: Normal external inspection. negative: External canal tenderness Nasal Exam: Discharge (clear) Mouth exam: Normal external inspection Teeth exam: Normal inspection Throat exam: Normal inspection. negative: Tonsillar erythema, Tonsillomegaly, Tonsillar exudate, R peritonsillar mass, L peritonsillar mass - Neck Neck exam: Normal inspection, Full ROM. negative: Lymphadenopathy, Meningismus , Tenderness - Respiratory Respiratory exam: Normal lung sounds bilaterally. negative: Accessory muscle use, Decreased breath sounds, Respiratory distress, Rhonchi, Stridor, Wheezes - Cardiovascular Cardiovascular Exam: Regular rate, Normal rhythm, Normal heart sounds Peripheral Pulses: 2+: Radial (R), Radial (L) - GI/Abdominal GI/Abdominal exam: Soft. negative: Tenderness - Rectal Rectal exam: Deferred - exam: Deferred - Extremities Extremities exam: Normal inspection. negative: Tenderness - Back Back exam: Denies: CVA tenderness (R), CVA tenderness (L) - Neurological Neurological exam: Alert, Oriented X3 - Psychiatric Psychiatric exam: Normal affect, Normal mood. negative: Agitated, Anxious - Skin Skin exam: Dry, Intact, Normal color, Warm Course Vital Signs 10/16/18 09:49 Temperature 97.8 F Pulse Rate 84 Respiratory 20 Rate Blood Pressure 153/76 Pulse Ox 100 - Reevaluation(s) Reevaluation #1: The vitals were reviewed. No acute abnormalities. 10/16/18 10:12 The strep screen is negative 10/16/18 10:13 10/16/18 10:17 The Influenza is negative. 10/16/18 10:19 I recommended considering Tamiflu given her symptoms are most consistent with Influenza and she is just at 2 days. Disposition Disposition: Discharge Clinical Impression: Bronchitis Disposition: Home, Self-Care Condition: (1) Good Instructions: Acute Bronchitis (ED) Additional Instructions: Call your doctor for the next available follow up appointment Return to the ER for a recheck if worse, any new concerns or questions Take the prescriptions provided as directed Review this ER visit and the tests performed with your family doctor Prescriptions: Oseltamivir Phosphate [Tamiflu] 75 mg PO BID #10 capsule Forms: Patient Portal Access Time of Disposition: 10:18 Quality - Quality Measures Quality Measures: N/A - Blood Pressure Screening Does Patient Have Any of the Following: No Blood Pressure Classification: Hypertensive Reading Systolic Measurement: 153 Diastolic Measurement: 76 Screening for High Blood Pressure: < Pre-Hypertensive BP, F/U Documented > [ G8950] Pre-Hypertensive Follow-up Interventions: Referral to alternative/primary care provider.
[2018-10-16 10:04] LABS: STREP A SCREEN NEGATIVE (NEGATIVE)
[2018-10-16 10:15] LABS: INFLUENZA A NEGATIVE (NEGATIVE); INFLUENZA B NEGATIVE (NEGATIVE)
== END 2018-10-16 10:15 | disposition home or self-care (01) ==
LOC: ER 09:44
DX: J20.9 Acute bronchitis, unspecified (principal); J02.9 Acute pharyngitis, unspecified; F17.210 Nicotine dependence, cigarettes, uncomplicated
CPT/HCPCS: 87400; 87880; 99282

== ENCOUNTER 2019-02-06 05:35 | Day surgery (SDC) | payer MEDICARE, MEDICAID ==
[2019-02-06] MEDS ORDERED: PROPOFOL 10 MG/ML VIAL IV ONE (05:36)
[2019-02-06] MEDS ORDERED: FENTANYL PF 100MCG/2ML VIAL IV ONE (05:36)
[2019-02-06] MEDS ORDERED: LIDOCAINE 2% MDV (20MG/ML) 20ML VIAL IV ONE (05:36)
[2019-02-06] MEDS ORDERED: SEVOFLURANE 250 ML INH ONE (05:36)
[2019-02-06] MEDS ORDERED: GLYCOPYRROLATE 0.2 MG/ML ML IV ONE (05:36)
[2019-02-06] MEDS ORDERED: DEXAMETHASONE 4 MG/ML 1ML VIAL IVP ONE (05:36)
[2019-02-06] MEDS ORDERED: MIDAZOLAM HCL 2MG/2ML VIAL IV ONE (05:36)
[2019-02-06 05:58] LABS: ABSOLUTE NEUTROPHIL COUNT 5.15; HEMATOCRIT 42.7 % (35.0-47.0); MEAN CELL VOLUME 82.4 fl (81-97); MEAN CORPUSCULAR HGB CONC 32.8 g/dl (32-36); PLATELET COUNT 230 K/uL (130-400); RED BLOOD COUNT 5.18 M/uL (3.80-5.40); RED CELL DISTRIBUTION WIDTH 15.4 % (11.5-14.5); WHITE BLOOD COUNT W/O DIFF 10.3 K/uL (4.2-12.2)
[2019-02-06] MEDS ORDERED: ACETAMINOPHEN 1,000 MG/100 ML BTL IVPB ONE (06:00)
[2019-02-06 06:10] LABS: CREATININE 1.1 mg/dL (0.5-0.9)
[2019-02-06] MEDS ORDERED: RINGERS SOLUTION,LACTATED 1,000 ML IV ONE (06:15)
[2019-02-06] MEDS ORDERED: 0.9 % SODIUM CHLORIDE 1000ML 1,000 ML IV ONE (07:08)
[2019-02-06] MEDS ORDERED: LIDOCAINE 1% MDV (10MG/ML) 20ML VIAL SQ ONE (08:09)
[2019-02-06] MEDS ORDERED: BUPIVACAINE 0.5% (5MG/ML) PF 30ML VIAL SQ ONE (08:09)
[2019-02-06] MEDS ORDERED: HYDROCODONE/APAP 7.5/325MG TABLET PO ONE (08:54)
--- NOTE | 2019-02-10 17:37 | Operative Note ---
PREOPERATIVE DIAGNOSIS: Equinus right ankle. POSTOPERATIVE DIAGNOSIS: Equinus right ankle. OPERATION: Endoscopic gastrocnemius recession right. SURGEON: Mani Bear DPM ANESTHESIA: General. INDICATION: The patient had chronic Achilles tendonitis right aggravated by equinus requiring lengthening of the Achilles tendon. PROCEDURE IN DETAIL: The patient was brought in the OR suite and placed supine upon the OR table. General anesthesia was instituted. The right foot, ankle, and leg was prepped and draped in the usual sterile manner. The right foot, ankle, and leg was exsanguinated with an Esmarch and a thigh tourniquet which was placed around appropriate padding to the distal thigh was elevated to 300 mmHg. Incision outlined and made along the medial edge of the gastroc soleal aponeurosis just distal to the medial gastroc muscle belly approximately 2-3 cm distally. Incision was made without difficulty. Blunt dissection utilized to isolate the paratenon and the aponeurosis. Paratenon incised and reflected. Fascial elevator utilized to separate the paratenon from the aponeurosis. Obturator inserted. Scope inserted visualizing a white glistening aponeurosis. The endoscopic gastrocnemius recession blade was applied to the scope. Endoscopic gastrocnemius recession was performed without difficulty, skin retracted with foot dorsiflexed. Underlying muscle belly easily noted. Residual fibers visualized and cut as well. Medial portion of the aponeurosis cut with 15 blade. Significant increase in dorsiflexion noted to the right foot and ankle. Wound was flushed with copious amounts of sterile saline and then infiltrated with approximately 20 mL of a 50/50 mixture of 1% lidocaine plain and 0.5% Marcaine plain. Tenon closed in simple interrupted fashion with 4-0 Vicryl. Skin closed in simple interrupted fashion with 4-0 nylon. A combination of sterile Adaptic, 4 x 4's, 2-inch Abel and Coban were applied. Tourniquet deflated to 0 mmHg. Hyperemic flush noted to foot and digits. The patient tolerated procedure well and was transferred to recovery room in stable condition. She is to minimize ambulation with a CAM walker and a walker taking pain medication as prescribed. Contact me by cell phone as needed. Keep dressing clean, dry, and intact. She is to follow up in the office next week. BUNNY
== END 2019-02-06 09:35 | disposition home or self-care (01) ==
LOC: SUR 05:35
PROVIDERS: ATTEND Podiatrist
DX: F17.210 Nicotine dependence, cigarettes, uncomplicated (principal)
CPT/HCPCS: 80048; 85027; J7030; J7120

== ENCOUNTER 2019-02-16 12:16 | Emergency (ER) | payer MEDICARE, MEDICAID ==
--- NOTE | 2019-02-16 12:34 | Emergency Department Record ---
History of Present Illness - General Chief complaint: Lower Extremity Pain Stated complaint: LEG PAIN Time Seen by Provider: 02/16/19 12:26 Source: Patient Mode of Arrival: Ambulatory Limitations: No limitations - History of Present Illness Initial comments: The patient had R lower leg surgery which was an achilles tendon issue by Dr. Bear 10 days ago. She had the sutures removed today and told him that she felt her R calf was more swollen and bruised over the last few days so she was sent to the ER for a leg doppler. She denies any pain behind the knee or any thigh pain. The patient denies any CP, SOB, ERICKA, or sweating. MD Complaint: Extremity pain Onset/Timin -: Days(s) Location: Right, Lower Leg History of Same: No Radiation: None Severity scale (1-10): 6 Quality: Aching Consistency: Constant Improves with: Nothing Worsens with: Nothing Associated Symptoms: Denies other symptoms - Related Data Home Medications Medication Instructions Recorded Confirmed Last Taken Hydrocodone/Acetaminophen 5 mg PO Q6H PRN 02/16/19 02/16/19 Unknown [Hydrocodone-Acetamin 5-300 mg] Allergies Allergy/AdvReac Type Severity Reaction Status Date / Time Iodinated Contrast- Oral and Allergy Severe ANAPHYLAXIS Verified 02/06/19 06:59 IV Dye Travel Screening - Travel/Exposure Within Last 30 Days Have you traveled within the last 30 days?: No Review of Systems Constitutional: Denies: Chills, Fever Eyes: Denies: Eye discharge ENT: Denies: Congestion Respiratory: Denies: Cough, Dyspnea Cardiovascular: Denies: Chest pain Past Medical History - SOCIAL HISTORY Smoking Status: Light tobacco smoker (<10/day) - RESPIRATORY Hx Respiratory Disorders: Yes Hx Bronchitis: Yes (GETS EVERY YEAR) Hx Pneumonia: Yes - CARDIOVASCULAR Hx Cardio Disorders: No - NEURO Hx Neuro Disorders: Yes Hx Neuropathy: Yes (RIGHT HAND RIGHT FOOT) - GI Hx GI Disorders: Yes Hx Reflux: Yes (CONTROLLED WITH TUMS AND DIET) - Hx Genitourinary Disorders: Yes Hx UTI: Yes (IN THE PAST NOTHING RECENT) - ENDOCRINE Hx Endocrine Disorders: No Hx Diabetes: No Hx Thyroid Disease: No - MUSCULOSKELETAL Hx Musculoskeletal Disorders: Yes Hx Arthritis: Yes (HANDS AND LEFT SHOULDER) Comment:: RIGHT ANKLE/FOOT PAIN - PSYCH Hx Psych Problems: No - HEMATOLOGY/ONCOLOGY Hx Hematology/Oncology Disorders: No Family Medical History Any Significant Family History?: Yes Hx Diabetes: Mother Hx Heart Disease: Father, Grandparents Physical Exam - General General Appearance: Alert, Oriented x3, Cooperative, No acute distress - Head Head exam: Atraumatic, Normocephalic - Eye Eye exam: Normal appearance, PERRL - Neck Neck exam: Normal inspection, Full ROM. negative: Tenderness - Respiratory Respiratory exam: Normal lung sounds bilaterally. negative: Respiratory distress - Cardiovascular Cardiovascular Exam: Regular rate, Normal rhythm, Normal heart sounds - Extremities Extremities exam: Tenderness (Mildly over the surgical scar.), Other (The R lower leg is NVI with normal DP pulses.). negative: Normal inspection (There is a well healed surgery scar over the posterior R lower leg over the distal calf area just past the half way area of the lower leg. There is very mild R calf swelling and bruising. There is no posterior knee or thigh tenderness.), Pedal edema Image of Full Body: 1 - Area of well healed surgical scar. 2 - Area of very mild bruising and tenderness. Course Vital Signs 02/16/19 12:20 Temperature 98.2 F Pulse Rate 87 Respiratory 20 Rate Blood Pressure 160/69 Pulse Ox 99 - Reevaluation(s) Reevaluation #1: I did discuss the neg doppler results with the patient and the need for F/U with her foot surgeon as previously instructed. 02/16/19 13:29 Medical Decision Making - Data Complexity MDM Data: X-Ray Ordered and/or Reviewed - Radiology Data Radiology results: Report reviewed (R leg Doppler: neg for DVT.) Disposition Disposition: Discharge Clinical Impression: Post-op pain Disposition: Home, Self-Care Condition: (2) Stable Instructions: Leg Pain (ED) Additional Instructions: Please continue your post operative instructions for Dr. Bear and see him as previously instructed. Return to the ER for any problems. Forms: Patient Portal Access Time of Disposition: 13:29 Quality - Quality Measures Quality Measures: N/A - Blood Pressure Screening View Details: Yes Does Patient Have Any of the Following: No Blood Pressure Classification: Hypertensive Reading Systolic Measurement: 160 Diastolic Measurement: 69 Screening for High Blood Pressure: < First Hypertensive BP, F/U Documented > [G8950] First Hypertensive Follow-up Interventions: Referral to alternative/primary care provider.
--- NOTE | 2019-02-18 07:56 | US VENOUS DOPPLER REPORT ---
EXAM: RIGHT LOWER EXTREMITY VENOUS DOPPLER ULTRASOUND HISTORY: STATUS POST HEEL SURGERY ON 02/06/19. RIGHT LOWER EXTREMITY PAIN, BRUISING, AND SWELLING. TECHNIQUE: Duplex Doppler evaluation of the right lower extremity deep venous system was performed in the standard fashion. Comparison: None. FINDINGS: The entire right lower extremity deep venous system from the external iliac vein through the calf veins was visualized. There is normal flow, phasicity, augmentation, and compression from the external iliac vein through the popliteal vein. Normal flow and augmentation is noted within the peroneal, posterior tibial and anterior tibial veins. There is no evidence for deep venous thrombosis. There are no loculated fluid collections or masses. Comparison images of the left external iliac, common femoral, and superior greater saphenous veins are also normal. IMPRESSION: NO EVIDENCE FOR DVT WITHIN THE RIGHT LOWER EXTREMITY. JOB NUMBER: [id number] [facility]
== END 2019-02-16 13:38 | disposition home or self-care (01) ==
LOC: ER 12:16
DX: G89.18 Other acute postprocedural pain (principal); M79.661 Pain in right lower leg; M79.671 Pain in right foot; Z72.0 Tobacco use
CPT/HCPCS: 99283

== ENCOUNTER 2019-09-23 08:33 | Emergency (ER) | payer MEDICAID, MEDICARE ==
--- NOTE | 2019-09-23 09:00 | Emergency Department Record ---
History of Present Illness - General Chief Complaint: Cough Stated Complaint: COUGH Time Seen by Provider: 09/23/19 08:37 Source: Patient, RN notes reviewed Mode of Arrival: Ambulatory - History of Present Illness Initial Comments: 7 days and coughing with some body aches and uses inhalers [facility]. Smokes one half pack per day and has two inhalers at home proair and advair. MD Complaint: Cough, Fever, Nasal congestion, Sore throat Onset/Timin -: Week(s) - Related Data Previous Rx's Medication Instructions Recorded Doxycycline Hyclate 100 mg PO BID #20 cap 09/23/19 Prednisone [Prednisone 10Mg] 10 mg PO ASDIR #30 tab 09/23/19 Allergies Allergy/AdvReac Type Severity Reaction Status Date / Time Iodinated Contrast Media Allergy Severe ANAPHYLAXIS Verified 09/23/19 08:39 [Iodinated Contrast- Oral and IV Dye] Travel Screening - Travel/Exposure Within Last 30 Days Have you traveled within the last 30 days?: No - Travel/Exposure Within Last Year Have you traveled outside the [place] in the last year?: No - Additonal Travel Details Have you been exposed to anyone with a communicable illness?: No - Travel Symptoms Symptom Screening: None Review of Systems Reviewed: No additional complaints except as noted below Constitutional: Reports: As per HPI. Denies: Chills, Fever, Malaise, Night sweats, Weakness, Weight change Eyes: Reports: As per HPI. Denies: Eye discharge, Eye pain, Photophobia, Vision change ENT: Reports: As per HPI. Denies: Congestion, Dental pain, Ear pain, Epistaxis, Hearing loss, Throat pain Respiratory: Reports: As per HPI. Denies: Cough, Dyspnea, Hemoptysis, Stridor, Wheezes Cardiovascular: Reports: As per HPI. Denies: Arrhythmia, Chest pain, Dyspnea on exertion, Edema, Murmurs, Orthopnea, Palpitations, Paroxysmal nocturnal dyspnea, Rheumatic Fever, Syncope Endocrine: Reports: As per HPI. Denies: Fatigue, Heat or cold intolerance, Polydipsia, Polyuria Gastrointestinal: Reports: As per HPI. Denies: Abdominal pain, Constipation, Diarrhea, Hematemesis, Hematochezia, Melena, Nausea, Vomiting Genitourinary: Reports: As per HPI. Denies: Abnormal menses, Discharge, Dyspareunia, Dysuria, Frequency, Hematuria, Incontinence, Retention, Urgency Musculoskeletal: Reports: As per HPI. Denies: Arthralgia, Back pain, Gout, Joint swelling, Myalgia, Neck pain Skin: Reports: As per HPI. Denies: Bruising, Change in color, Change in hair/nails, Lesions, Pruritus, Rash Neurological: Reports: As per HPI. Denies: Abnormal gait, Confusion, Headache, Numbness, Paresthesias, Seizure, Tingling, Tremors, Vertigo, Weakness Psychiatric: Reports: As per HPI. Denies: Anxiety, Auditory hallucinations, Depression, Homicidal thoughts, Suicidal thoughts, Visual hallucinations Hematological/Lymphatic: Reports: As per HPI. Denies: Anemia, Blood Clots, Easy bleeding, Easy bruising, Swollen glands Past Medical History - SOCIAL HISTORY Smoking Status: Light tobacco smoker (<10/day) Alcohol Use: Occasional Drug Use: None - RESPIRATORY Hx Respiratory Disorders: Yes Hx Bronchitis: Yes (GETS EVERY YEAR) Hx Pneumonia: Yes - CARDIOVASCULAR Hx Cardio Disorders: No - NEURO Hx Neuro Disorders: Yes Hx Neuropathy: Yes (RIGHT HAND RIGHT FOOT) - GI Hx GI Disorders: Yes Hx Reflux: Yes (CONTROLLED WITH TUMS AND DIET) - Hx Genitourinary Disorders: Yes Hx UTI: Yes (IN THE PAST NOTHING RECENT) - ENDOCRINE Hx Endocrine Disorders: No Hx Diabetes: No Hx Thyroid Disease: No - MUSCULOSKELETAL Hx Musculoskeletal Disorders: Yes Hx Arthritis: Yes (HANDS AND LEFT SHOULDER) Comment:: RIGHT ANKLE/FOOT PAIN - PSYCH Hx Psych Problems: No - HEMATOLOGY/ONCOLOGY Hx Hematology/Oncology Disorders: No Family Medical History Any Significant Family History?: Yes Hx Diabetes: Mother Hx Heart Disease: Father, Grandparents Physical Exam - General General Appearance: Alert, Oriented x3, Cooperative, No acute distress - Head Head exam: Normal inspection - Eye Eye exam: Normal appearance, PERRL Pupils: Normal accommodation - ENT ENT exam: Normal exam, Mucous membranes moist, Normal external ear exam, Normal orophraynx, TM's normal bilaterally Ear exam: Normal external inspection. negative: External canal tenderness Nasal Exam: Normal inspection. negative: Discharge, Sinus tenderness Mouth exam: Normal external inspection, Tongue normal Teeth exam: Normal inspection. negative: Dental caries Throat exam: Normal inspection. negative: Tonsillar erythema, Tonsillar exudate - Neck Neck exam: Normal inspection, Full ROM. negative: Tenderness - Respiratory Respiratory exam: Normal lung sounds bilaterally. negative: Respiratory distress - Cardiovascular Cardiovascular Exam: Regular rate, Normal rhythm, Normal heart sounds - GI/Abdominal GI/Abdominal exam: Soft, Normal bowel sounds. negative: Tenderness - Rectal Rectal exam: Deferred - exam: Deferred - Extremities Extremities exam: Normal inspection, Full ROM, Normal capillary refill. negative: Tenderness - Back Back exam: Reports: Normal inspection, Full ROM. Denies: Muscle spasm, Rash noted, Tenderness - Neurological Neurological exam: Alert, Normal gait, Oriented X3, Reflexes normal - Psychiatric Psychiatric exam: Normal affect, Normal mood - Skin Skin exam: Dry, Intact, Normal color, Warm Course Vital Signs 09/23/19 08:43 Temperature 98.3 F Pulse Rate 83 Respiratory 20 Rate Blood Pressure 138/82 Pulse Ox 99 Medical Decision Making - Data Complexity MDM Data: X-Ray Ordered and/or Reviewed (chest xray negative) Disposition Clinical Impression: Bronchitis, COPD (chronic obstructive pulmonary disease) with acute bronchitis Disposition: Home, Self-Care Condition: (1) Good Instructions: COPD (Chronic Obstructive Pulmonary Disease) (ED), Acute Bronchitis (ED) Additional Instructions: follow up with family Dr in 5 days Prescriptions: Doxycycline Hyclate 100 mg PO BID #20 cap Prednisone [Prednisone 10Mg] 10 mg PO ASDIR #30 tab Forms: Patient Portal Access Time of Disposition: 09:37 Quality - Quality Measures Quality Measures: N/A - Blood Pressure Screening Does Patient Have Any of the Following: No Blood Pressure Classification: Pre-Hypertensive BP Reading Systolic Measurement: 138 Diastolic Measurement: 82 Screening for High Blood Pressure: < Pre-Hypertensive BP, F/U Documented > [G8950] Pre-Hypertensive Follow-up Interventions: Referral to alternative/primary care provider.
[2019-09-23 09:07] LABS: INFLUENZA A NEGATIVE (NEGATIVE); INFLUENZA B NEGATIVE (NEGATIVE); STREP A SCREEN NEGATIVE (NEGATIVE)
--- NOTE | 2019-09-23 09:32 | RADIOLOGY REPORT ---
EXAMINATION: Two View Chest Radiographs EXAM DATE: 09/23/2019 9:27 AM TECHNIQUE: Frontal and lateral views INDICATION: cough COMPARISON: 01/13/2019 ENCOUNTER: Not applicable FINDINGS: Heart and mediastinal structures stable. No pulmonary consolidation or infiltration. No pneumothorax or pleural effusion. Stable left upper lobe granuloma. Cervical fusion IMPRESSION: No acute abnormality Dictated by: Woody Salinas MD on 09/23/2019 9:28 AM. .
== END 2019-09-23 09:51 | disposition home or self-care (01) ==
LOC: ER 08:33
DX: J44.0 Chronic obstructive pulmonary disease with (acute) lower respiratory infection (principal); J20.9 Acute bronchitis, unspecified; F17.210 Nicotine dependence, cigarettes, uncomplicated
CPT/HCPCS: 71046; 87400; 87880; 99284